=== PATIENT | female | born 1965 | race Caucasian/White ===

== ENCOUNTER 2017-05-17 15:45 | Inpatient (IN) | payer OTHER ==
[~2017-05-17 15:45] MED LIST: ONDANSETRON 4 MG/2 ML VIAL IVPUSH PRN
--- NOTE | 2017-05-17 15:56 | PDOC ---
Rapid Medical Evaluation Chief Complaint: Eye Problem Time Seen by Provider: 05/17/17 15:55 Medical Evaluation: Allergies Allergy/AdvReac Type Severity Reaction Status Date / Time No Known Allergies Allergy Verified 10/30/13 21:00 05/17/17 15:55 I have performed a brief in-person evaluation of this patient. The patient presents with a chief complaint of: anorexia x 1 week, vomiting > 1 week, pain to R side, elevated bilirubin to "6.8 i think, they said i have acute CBD and enlarged liver from a sonogram yesterday", has dark urine, was supposed to get an MRCP - sent in by PCP Layla Meléndez Pertinent physical exam findings: mild jaundice I have ordered the following: labs The patient will proceed to the ED for further evaluation. Discharge Disposition - Diagnosis Elevated bilirubin - Referrals - Patient Instructions - Post Discharge Activity
[2017-05-17 16:58] LABS: EOS % 1.1 % (0-4.5); HEMATOCRIT 38.9 % (32.4-45.2); HEMOGLOBIN 13.7 GM/dL (10.7-15.3); LYMPH % 32.8 % (8-40); MCH 30.6 pg (25.7-33.7); MCHC 35.1 g/dl (32.0-36.0); MEAN CELL VOLUME 87.3 fl (80-96); MEAN PLT VOLUME 8.1 fl (7.5-11.1); MONO % 6.6 % (3.8-10.2); NEUT % 58.5 % (42.8-82.8); PLATELET COUNT 283 K/MM3 (134-434); RBC 4.46 M/mm3 (3.60-5.2); RDW 14.6 % (11.6-15.6); WHITE BLOOD COUNT 6.3 K/mm3 (4.0-10.0)
[2017-05-17 17:09] LABS: URINE APPEARANCE CLEAR; URINE BLOOD 2+ (NEGATIVE); URINE COLOR AMBER; URINE GLUCOSE (UA) NEGATIVE (NEGATIVE); URINE KETONE NEGATIVE (NEGATIVE); URINE LEUK ESTERASE NEGATIVE (NEGATIVE); URINE NITRITE NEGATIVE (NEGATIVE); URINE PROTEIN NEGATIVE (NEGATIVE); URINE UROBILINOGEN 4.0 E.U/dl mg/dL (0.2-1.0)
[2017-05-17 17:20] LABS: ALBUMIN 3.7 g/dl (3.4-5.0); AMYLASE 30 U/L (25-115); ANION GAP 6 (8-16); BLOOD UREA NITROGEN 9 mg/dL (7-18); CALCIUM 8.9 mg/dL (8.5-10.1); CHLORIDE 106 mmol/L (98-107); CO2 28 mmol/L (21-32); GLUCOSE,RANDOM 115 mg/dL (74-106); POTASSIUM 3.6 mmol/L (3.5-5.1); SODIUM 140 mmol/L (136-145)
[2017-05-17 17:24] LABS: ALK PHOS 224 U/L (45-117); BILIRUBIN,TOTAL 7.2 mg/dL (0.2-1.0); CREATININE 0.8 mg/dL (0.55-1.02); SGOT/AST 106 U/L (15-37); SGPT/ALT 235 U/L (12-78); TOT PROT 7.2 g/dl (6.4-8.2)
[2017-05-17 17:25] LABS: EPI CELLS RARE /HPF (FEW); URINE MUCUS RARE
--- NOTE | 2017-05-17 17:55 | PDOC ---
History of Present Illness - General Chief Complaint: Pain Stated Complaint: abd pain (PCP SENT) Time Seen by Provider: 05/17/17 15:55 History Source: Patient Exam Limitations: No Limitations - History of Present Illness Initial Comments: 05/17/17 18:37 I was unable to find this patient Ultrasound was ordered Will continue to look for her Past History - Past Medical History Allergies/Adverse Reactions: Allergies Allergy/AdvReac Type Severity Reaction Status Date / Time No Known Allergies Allergy Verified 05/17/17 16:01 Home Medications: Ambulatory Orders Bupropion HCl [Bupropion Xl] 300 mg PO BID 10/30/13 Ergocalciferol (Vitamin D2) [Vitamin D] 50,000 unit PO WEEKLY 10/30/13 Hydrochlorothiazide [Hctz -] 25 mg PO DAILY 10/30/13 Hyoscyamine 0.125 mg PO TID 10/30/13 Loratadine 10 mg PO DAILY 10/30/13 Magnesium Oxide [Mag-Ox -] 400 mg PO DAILY 10/30/13 Metformin HCl [Metformin HCl ER] 500 mg PO BID 10/30/13 Metoprolol Tartrate [Lopressor -] 25 mg PO BID 10/30/13 [place]-3 Acid Ethyl Esters [Lovaza -] 1,000 mg PO BID 10/30/13 Omeprazole [Prilosec] 20 mg PO BID 10/30/13 COPD: No Diabetes: Yes GI Disorders: Yes (enlarged liver) HTN: Yes - Immunization History Immunization Up to Date: Yes - Suicide/Smoking/Psychosocial Hx Smoking History: Never smoked Have you smoked in the past 12 months: No Information on smoking cessation initiated: No Hx Alcohol Use: No Drug/Substance Use Hx: No Substance Use Type: None *Physical Exam - Vital Signs Last Vital Signs Temp Pulse Resp BP Pulse Ox 98.5 F 73 18 158/96 100 05/17/17 15:57 05/17/17 15:57 05/17/17 15:57 05/17/17 15:57 05/17/17 15:57 ED Treatment Course - LABORATORY CBC & Chemistry Diagram: 05/17/17 16:38 05/17/17 16:37 - ADDITIONAL ORDERS Additional order review: Laboratory Results 05/17/17 05/17/17 05/17/17 16:43 16:38 16:37 Sodium 140 Potassium 3.6 Chloride 106 Carbon Dioxide 28 Anion Gap 6 L BUN 9 Creatinine 0.8 Creat Clearance w eGFR > 60 Random Glucose 115 H Calcium 8.9 Total Bilirubin 7.2 H AST 106 H ALT 235 H Alkaline Phosphatase 224 H Total Protein 7.2 Albumin 3.7 Total Amylase 30 Lipase 196 Urine Color [place] Urine Appearance Clear Urine pH 6.0 Ur Specific [place] 1.021 Urine Protein Negative Urine Glucose (UA) Negative Urine Ketones Negative Urine Blood 2+ H Urine Nitrite Negative Urine Bilirubin 4.0 Urine Urobilinogen 4.0 e.u/dl H Ur Leukocyte Esterase Negative Urine WBC (Auto) 5 Urine RBC (Auto) 3 Ur Epithelial Cells Rare Urine Mucus Rare 05/17/17 16:38 RBC 4.46 MCV 87.3 MCHC 35.1 RDW 14.6 MPV 8.1 Neutrophils % 58.5 Lymphocytes % 32.8 Monocytes % 6.6 Eosinophils % 1.1 Basophils % 1.0 *DC/Admit/Observation/Transfer Diagnosis at time of Disposition: Elevated bilirubin - Referrals Referrals: Su Meléndez [Primary Care Provider] - - Patient Instructions - Post Discharge Activity
--- NOTE | 2017-05-17 20:20 | PDOC ---
History of Present Illness - General History Source: Patient Exam Limitations: No Limitations - History of Present Illness Initial Comments: 05/17/17 20:31 The patient is a 51 year old female, with a significant past medical history of hypertension, diabetes, and enlarged liver, who presents to the emergency department with RUQ pain for 1 week. Patient reports her pain radiates into her right mid back. She reports associated changes in urine color (brown tinged), but denies any dysuria, frequency, or urgency. Patient reports following up with her PCP Dr. Meléndez, who ordered an US, which was notable for a stone in the bile duct. Patient reports she has only been able to tolerate fluids p.o. Secondary to pain. She denies any nausea, vomiting, diarrhea, or constipation. She denies any dysuria, hematuria, frequency, or urgency. Allergies: NKDA Past Surgical History: None reported Social History: Non smoker. No ETOH or recreational drug use. PCP: Dr. Meléndez GI: Dr. Bullock <Maren Louie - Last Filed: 05/17/17 22:22> <Kiah Arrieta - Last Filed: 05/17/17 23:04> - General Chief Complaint: Pain Stated Complaint: abd pain (PCP SENT) Time Seen by Provider: 05/17/17 15:55 Past History <Maren Louie - Last Filed: 05/17/17 22:22> - Past Medical History COPD: No Diabetes: Yes GI Disorders: Yes (enlarged liver) HTN: Yes - Immunization History Immunization Up to Date: Yes - Suicide/Smoking/Psychosocial Hx Smoking History: Never smoked Have you smoked in the past 12 months: No Information on smoking cessation initiated: No Hx Alcohol Use: No Drug/Substance Use Hx: No Substance Use Type: None <Kiah Arrieta - Last Filed: 05/17/17 23:04> - Past Medical History Allergies/Adverse Reactions: Allergies Allergy/AdvReac Type Severity Reaction Status Date / Time No Known Allergies Allergy Verified 05/17/17 16:01 Home Medications: Ambulatory Orders Bupropion HCl [Bupropion Xl] 300 mg PO BID 10/30/13 Ergocalciferol (Vitamin D2) [Vitamin D] 50,000 unit PO WEEKLY 10/30/13 Hydrochlorothiazide [Hctz -] 25 mg PO DAILY 10/30/13 Hyoscyamine 0.125 mg PO TID 10/30/13 Loratadine 10 mg PO DAILY 10/30/13 Magnesium Oxide [Mag-Ox -] 400 mg PO DAILY 10/30/13 Metformin HCl [Metformin HCl ER] 500 mg PO BID 10/30/13 Metoprolol Tartrate [Lopressor -] 25 mg PO BID 10/30/13 [place]-3 Acid Ethyl Esters [Lovaza -] 1,000 mg PO BID 10/30/13 Omeprazole [Prilosec] 20 mg PO BID 10/30/13 Review of Systems - Review of Systems Able to Perform ROS?: Yes Comments:: 05/17/17 20:32 GENERAL/CONSTITUTIONAL: No fever or chills. No weakness. HEAD, EYES, EARS, NOSE AND THROAT: No change in vision. No ear pain or discharge. No sore throat. GASTROINTESTINAL: Yes RUQ pain radiating to left mid back No nausea, vomiting, diarrhea or constipation. GENITOURINARY: Yes change in urine color. No dysuria, frequency. CARDIOVASCULAR: No chest pain or shortness of breath. RESPIRATORY: No cough, wheezing, or hemoptysis. MUSCULOSKELETAL: No joint or muscle swelling or pain. No neck pain. SKIN: No rash NEUROLOGIC: No headache, vertigo, loss of consciousness, or change in strength/ sensation. ENDOCRINE: Decreased appetite. No increased thirst. No abnormal weight change. HEMATOLOGIC/LYMPHATIC: No anemia, easy bleeding, or history of blood clots. ALLERGIC/IMMUNOLOGIC: No hives or skin allergy. <Maren Louie - Last Filed: 05/17/17 22:22> *Physical Exam - Vital Signs Last Vital Signs Temp Pulse Resp BP Pulse Ox 98.5 F 73 18 158/96 100 05/17/17 15:57 05/17/17 15:57 05/17/17 15:57 05/17/17 15:57 05/17/17 15:57 - Physical Exam Comments: 05/17/17 20:32 Constitutional: Awake, alert, oriented. No acute distress. Head: Normocephalic. Atraumatic Eyes: +Scleral icterus PERRL. EOMI. Conjunctivae are not pale. ENT: Mucous membranes are moist and intact. Posterior pharynx without exudates or erythema. Uvula midline. Neck: Supple. Full ROM. No lymphadenopathy. Cardiovascular: Regular rate. Regular rhythm. S1, S2 regular. Distal pulses are 2+ and symmetric. Pulmonary/Chest: No evidence of respiratory distress. Clear to auscultation bilaterally No wheezing, rales or rhonchi. Abdominal: +RUQ tenderness to palpation, but no guarding or rebound. Soft and non-distended. No organomegaly. No palpable masses. Good bowel sounds. Back: No CVA tenderness. Musculoskeletal: No edema. No cyanosis. No clubbing. Full range of motion in all extremities. No calf tenderness. Radial/pedal pulses are intact and 2+ bilaterally Skin: +Jaundice. Skin is warm and dry. No petechiae. No purpura. Neurological: Alert and oriented to person, place, and time. Cranial nerves II -XII are grossly intact. Normal speech. Strength is grossly symmetric. No sensory deficits. Psychiatric: Good eye contact. Normal interaction, affect and behavior. <Maren Louie - Last Filed: 05/17/17 22:22> - Vital Signs Last Vital Signs Temp Pulse Resp BP Pulse Ox 98.5 F 73 18 158/96 100 05/17/17 15:57 05/17/17 15:57 05/17/17 15:57 05/17/17 15:57 05/17/17 15:57 <Kiah Arrieta - Last Filed: 05/17/17 23:04> Heart Score/ECG Review - ECG Intrepretation Comment:: 05/17/17 23:03 sinus isaiah at 59, nl axis, nl interval, t wave inversions lateral leads <Kiah Arrieta - Last Filed: 05/17/17 23:04> ED Treatment Course - LABORATORY CBC & Chemistry Diagram: 05/17/17 16:38 05/17/17 16:37 - ADDITIONAL ORDERS Additional order review: Laboratory Results 05/17/17 05/17/17 05/17/17 16:43 16:38 16:37 Sodium 140 Potassium 3.6 Chloride 106 Carbon Dioxide 28 Anion Gap 6 L BUN 9 Creatinine 0.8 Creat Clearance w eGFR > 60 Random Glucose 115 H Calcium 8.9 Total Bilirubin 7.2 H AST 106 H ALT 235 H Alkaline Phosphatase 224 H Total Protein 7.2 Albumin 3.7 Total Amylase 30 Lipase 196 Urine Color Magdalena Urine Appearance Clear Urine pH 6.0 Ur Specific [place] 1.021 Urine Protein Negative Urine Glucose (UA) Negative Urine Ketones Negative Urine Blood 2+ H Urine Nitrite Negative Urine Bilirubin 4.0 Urine Urobilinogen 4.0 e.u/dl H Ur Leukocyte Esterase Negative Urine WBC (Auto) 5 Urine RBC (Auto) 3 Ur Epithelial Cells Rare Urine Mucus Rare 05/17/17 16:38 RBC 4.46 MCV 87.3 MCHC 35.1 RDW 14.6 MPV 8.1 Neutrophils % 58.5 Lymphocytes % 32.8 Monocytes % 6.6 Eosinophils % 1.1 Basophils % 1.0 <Maren Louie - Last Filed: 05/17/17 22:22> - LABORATORY CBC & Chemistry Diagram: 05/17/17 16:38 05/17/17 16:37 - ADDITIONAL ORDERS Additional order review: Laboratory Results 05/17/17 05/17/17 05/17/17 16:43 16:38 16:37 Sodium 140 Potassium 3.6 Chloride 106 Carbon Dioxide 28 Anion Gap 6 L BUN 9 Creatinine 0.8 Creat Clearance w eGFR > 60 Random Glucose 115 H Calcium 8.9 Total Bilirubin 7.2 H AST 106 H ALT 235 H Alkaline Phosphatase 224 H Total Protein 7.2 Albumin 3.7 Total Amylase 30 Lipase 196 Urine Color [place] Urine Appearance Clear Urine pH 6.0 Ur Specific [place] 1.021 Urine Protein Negative Urine Glucose (UA) Negative Urine Ketones Negative Urine Blood 2+ H Urine Nitrite Negative Urine Bilirubin 4.0 Urine Urobilinogen 4.0 e.u/dl H Ur Leukocyte Esterase Negative Urine WBC (Auto) 5 Urine RBC (Auto) 3 Ur Epithelial Cells Rare Urine Mucus Rare 05/17/17 16:38 RBC 4.46 MCV 87.3 MCHC 35.1 RDW 14.6 MPV 8.1 Neutrophils % 58.5 Lymphocytes % 32.8 Monocytes % 6.6 Eosinophils % 1.1 Basophils % 1.0 <Kiah Arrieta - Last Filed: 05/17/17 23:04> Medical Decision Making - Medical Decision Making 05/17/17 21:23 First call placed to Dr. Bullock at 21:23. Awaiting call back. Case discussed with Dr. Bullock at 22:15. First call to Surgery service liaison representative at 22:25. Awaiting call back. <Maren Louie - Last Filed: 05/17/17 22:22> - Medical Decision Making 05/17/17 21:01 a/p: 51yo female with RUQ pain -seen by PMD on monday - had ultrasound that showed dilated CBD concerning for acute choledocholithiasis also with elevated bilirubin jaundiced has had n/v and RUQ pain after ever meal will repeat labs and ultrasound ivf hydration npo preop labs chast[facility] LE will call with results pain control 05/17/17 22:17 pt updated on lab and imaging results 05/17/17 22:[address] Bullock - admit and will do ERCP 05/17/17 22:18 Dr. Bullock states that Dr. Meléndez is covered by Dr. Felton who is covered tonight by [facility] 05/17/17 23:[address] Snyder - covering [facility] accepts pt to service case discussed with Dr. Sommers - will see the patient in consult <Kiah Arrieta - Last Filed: 05/17/17 23:04> *DC/Admit/Observation/Transfer - Attestations Scribe Attestion: 05/17/17 20:31 Documentation prepared by Maren Louie, acting as medical scheduler for Kiah Arrieta DO. <Maern Louie - Last Filed: 05/17/17 22:22> - Discharge Dispostion Admit: Yes - Attestations Physician Attestion: 05/17/17 22:17 I, Dr. Kiah Arrieta DO, attest that this document has been prepared under my direction and personally reviewed by me in its entirety. I further attest, that it accurately reflects all work, treatment, procedures and medical decision -making performed by me. <Kiah Arrieta - Last Filed: 05/17/17 23:04> Diagnosis at time of Disposition: Elevated bilirubin, Choledocholithiasis, Cholelithiasis - Discharge Dispostion Condition at time of disposition: Guarded - Referrals Referrals: Su Meléndez [Primary Care Provider] - - Patient Instructions - Post Discharge Activity
[2017-05-17] MEDS ORDERED: SODIUM CHLORIDE 0.9% 1000 ML INFUS.BAG IV ONE (20:29)
[2017-05-17] MEDS ORDERED: morphine CARPU-JECT 2 MG/1 ML DISP.SYRIN IVPUSH ONE (20:29)
[2017-05-17] MEDS ORDERED: ONDANSETRON 4 MG/2 ML VIAL IVPUSH ONE (20:29)
[2017-05-17] MEDS ORDERED: FAMOTIDINE 20 MG/50 ML IVPB 20 MG/50 ML MG IVPB ONE (20:45)
[2017-05-17] MEDS ORDERED: ONDANSETRON 4 MG/2 ML VIAL ONE (21:38)
[2017-05-17] MEDS ORDERED: morphine SULFATE 4 MG/ML VIAL ONE (21:38)
[2017-05-17 22:04] LABS: INR 0.96 (0.82-1.09); PROTHROMBIN TIME (PATIENT) 10.8 SEC (9.98-11.88)
--- NOTE | 2017-05-17 23:13 | PN ---
Teaching Attending Note Name of Resident: Kali Arthur ATTENDING PHYSICIAN STATEMENT I saw and evaluated the patient. I reviewed the resident's note and discussed the case with the resident. I agree with the resident's findings and plan as documented. SUBJECTIVE: 51 F with Pmhx. of HTN, DM, Hepatomegaly who presents with right upper quadrant pain X1 week, States pain was sharp and worse with eating. Notes she had one NBNB episode of vomiting yesterday. States her urine has been brown and her stool dye jig operator than usual. Denies any chest pain, pressure, or shortness of breath. No nausea or diarrhea. No fevers or chills. States pain is 0 now after pain medication in ED. OBJECTIVE: Physical: VS: Vital Signs Period Temp Pulse Resp BP Sys/Barrett Pulse Ox Last 24 Hr 98.5 F 73 18 158/96 100 GEN: NAD, Resting in bed, AA0X3 HEENT: NCAT, PERRL, Throat without erythema or exudates CARD: RRR S1, S2 RESP:CTAB ABD: BSx4, NTD to palpation EXT: - C/C/E CBCD WBC 6.3 K/mm3 (4.0-10.0) 05/17/17 16:38 RBC 4.46 M/mm3 (3.60-5.2) 05/17/17 16:38 Hgb 13.7 GM/dL (10.7-15.3) 05/17/17 16:38 Hct 38.9 % (32.4-45.2) 05/17/17 16:38 MCV 87.3 fl (80-96) 05/17/17 16:38 MCHC 35.1 g/dl (32.0-36.0) 05/17/17 16:38 RDW 14.6 % (11.6-15.6) 05/17/17 16:38 Plt Count 283 K/MM3 (134-434) 05/17/17 16:38 MPV 8.1 fl (7.5-11.1) 05/17/17 16:38 CMP Sodium 140 mmol/L (136-145) 05/17/17 16:37 Potassium 3.6 mmol/L (3.5-5.1) 05/17/17 16:37 Chloride 106 mmol/L (98-107) 05/17/17 16:37 Carbon Dioxide 28 mmol/L (21-32) 05/17/17 16:37 Anion Gap 6 (8-16) L 05/17/17 16:37 BUN 9 mg/dL (7-18) 05/17/17 16:37 Creatinine 0.8 mg/dL (0.55-1.02) 05/17/17 16:37 Creat Clearance w eGFR > 60 (>60) 05/17/17 16:37 Random Glucose 115 mg/dL (74-106) H 05/17/17 16:37 Calcium 8.9 mg/dL (8.5-10.1) 05/17/17 16:37 Total Bilirubin 7.2 mg/dL (0.2-1.0) H 05/17/17 16:37 AST 106 U/L (15-37) H 05/17/17 16:37 ALT 235 U/L (12-78) H 05/17/17 16:37 Alkaline Phosphatase 224 U/L (45-117) H 05/17/17 16:37 Total Protein 7.2 g/dl (6.4-8.2) 05/17/17 16:37 Albumin 3.7 g/dl (3.4-5.0) 05/17/17 16:37 ABD US: Cholelithiasis without evidence of acute choley. Mild - Moderate gallbladder overdistension. Bile/Sludge within lumen CBD dilated 1.2 cm. Mild Intrahepatic biliary tract dilitation. Ambulatory Orders Bupropion HCl [Bupropion Xl] 300 mg PO BID 10/30/13 Ergocalciferol (Vitamin D2) [Vitamin D] 50,000 unit PO WEEKLY 10/30/13 Hydrochlorothiazide [Hctz -] 25 mg PO DAILY 10/30/13 Hyoscyamine 0.125 mg PO TID 10/30/13 Loratadine 10 mg PO DAILY 10/30/13 Magnesium Oxide [Mag-Ox -] 400 mg PO DAILY 10/30/13 Metformin HCl [Metformin HCl ER] 500 mg PO BID 10/30/13 Metoprolol Tartrate [Lopressor -] 25 mg PO BID 10/30/13 [place]-3 Acid Ethyl Esters [Lovaza -] 1,000 mg PO BID 10/30/13 Omeprazole [Prilosec] 20 mg PO BID 10/30/13 ASSESSMENT AND PLAN: 51 F with pmhx. of HTN, DM who presents with right upper quadrant pain, being admitted for possible choledocholelithiasis 1.) RUQ Pain - Choledocholithiasis possible acute choley - NPO - IVF - Pain Control - GI Consulted BY ED, for ERCP in am - Coags - Type & Screen 2.) DM - FS - RAISS 3.) HTN - C/W Metoprolol 5.) Dvt Ppx - SCDS Rest as per resident note Place in Med-Sx
[2017-05-17] MEDS ORDERED: morphine SULFATE 4 MG/ML VIAL IVPUSH PRN (23:16)
--- NOTE | 2017-05-17 23:34 | MSN ---
Admitting History and Physical - Admission Chief Complaint: RUQ pain History of Present Illness: 51 yr old female with hx of HTN, diabetes, obesity, and anxiety presents with 1 week of severe right upper quadrant fullness. Patient reports she has been intermittently experiencing RUQ after eating for several months however, last Monday patient described feeling a very sharp pain in her RUQ after eating. She describes this pain as much more severe than previous episodes. This pain was associated with repeated vomiting and radiation of the pain up the right chest and into the right shoulder. Patient thought that the pain was from indigestion and did not seek medical attention at the time. Since this episode 1 week ago, she continues to experience RUQ fullness and been unable to tolerate solid foods without vomiting. Patient went to her PCP (Dr. De Los Santos) on Monday who ordered u/s that demonstrated cholelithiasis and choledocolithias. Patient was advised to go to ED. Patient has noticed that her sclera/ skin have appeared yellow in the past week. She admits to dark colored urine and pale stools. She denies fever, chills, chest pain or SOB. History Source: Patient Limitations to Obtaining History: No Limitations - Past Surgical History Past Surgical History: Yes: - Smoking History Smoking history: Never smoked Have you smoked in the past 12 months: No - Alcohol/Substance Use Hx Alcohol Use: No Home Medications - Allergies Allergies/Adverse Reactions: Allergies Allergy/AdvReac Type Severity Reaction Status Date / Time No Known Allergies Allergy Verified 05/17/17 16:01 - Home Medications Home Medications: Ambulatory Orders Bupropion HCl [Bupropion Xl] 300 mg PO BID 10/30/13 Ergocalciferol (Vitamin D2) [Vitamin D] 50,000 unit PO WEEKLY 10/30/13 Hydrochlorothiazide [Hctz -] 25 mg PO DAILY 10/30/13 Hyoscyamine 0.125 mg PO TID 10/30/13 Loratadine 10 mg PO DAILY 10/30/13 Magnesium Oxide [Mag-Ox -] 400 mg PO DAILY 10/30/13 Metformin HCl [Metformin HCl ER] 500 mg PO BID 10/30/13 Metoprolol Tartrate [Lopressor -] 25 mg PO BID 10/30/13 [place]-3 Acid Ethyl Esters [Lovaza -] 1,000 mg PO BID 09/24/14 Omeprazole [Prilosec] 20 mg PO BID 10/30/13 Review of Systems - Review of Systems Constitutional: reports: Loss of Appetite. denies: Chills, Fever Gastrointestinal: reports: Abdominal Pain, Constipation, Indigestion Physical Examination Vital Signs: Vital Signs Temperature 98.5 F 05/17/17 15:57 Pulse Rate 73 05/17/17 15:57 Respiratory Rate 18 05/17/17 15:57 Blood Pressure 158/96 05/17/17 15:57 O2 Sat by Pulse Oximetry (%) 100 05/17/17 15:57 Findings/Remarks: GENERAL: Well-appearing woman reclining on stretcher in no acute distress HEAD: Normocephalic, atraumatic EYES: Yellowed sclera NECK: Supple without lymphadenapathy CARDIOVASCULAR: No JVD, normal S1/S2 without murmur, rubs, or gallops LUNGS: Clear to auscultation b/l, no wheezes or crackles ABDOMEN: Normoactive bowel sounds, soft, RUQ tenderness, no rebound or guarding EXTREMITIES: No edema, warm, well-perfused NEURO: Normal speech, no difficultly ambulating Labs: CBC, BMP 05/17/17 16:38 05/17/17 16:37 Imaging - Results Ultrasound: Report Reviewed (Cholelithiasis w/o evidence of acute cholecystitis , mild/moderate gallbladder overdistention, common bile duct dilated to 1.2 cm) EKG: Report Reviewed (Sinus bradycardia with T-wave inversions in the lateral leads) Assessment/Plan 51 yr old woman with hx of HTN, diabetes, obesity and anxiety was sent to ED by PCP after presenting to PCP with 1 week of RUQ fullness and was found to have a dilated common bile duct on abd u/s. #Right Upper Quadrant Pain -ABD u/s demonstrated dilated common bile duct, distended gallbladder, and cholelithiasis -Total bilirubin 7.2; elevated AST/ALT/alk phos -Patient unable to tolerate MRCP; scheduled for ERCP with Dr. Bullock for -Consult Dr. Sommers for cholecystectomy -Order CXR, EKG, CBC, CMP, type and cross to prepare for OR -Control abd pain with morphine #HTN -Continue home medications; Metropolol, HCTZ #Diabetes -Hold Metformin -POC BGM AC/HS -Cover with insulin sliding scale as needed to maintain postprandial < 180 and fasting <120 #Anxiety -Continue buproprion #FEN -NS at 100ml/hr -NPO after midnight #Dispo -Admit to med-surg
--- NOTE | 2017-05-17 23:37 | HP ---
CHIEF COMPLAINT: RUQ Pain PCP: Dr Meléndez HISTORY OF PRESENT ILLNESS: 51yo obese F with PMHx of HTN, DM2 who presented with 4 days of constant RUQ pain. Attests to weeks of postprandial colicky RUQ pain, but attributed it to her GERD. 4 days ago, she experienced constant, sharp RUQ pain assoc w/ NBNB vomiting, jaundice, dark urine, and light colored stools. She went to her PCP who performed a RUQ ultrasound which showed a stone in her CBD. She was sent here for further management. She denies fevers, chills, CP, SOB, diarrhea, constipation. In the ER, the patient was hemodynamically stable, afebrile. She was given morphine which relieved her pain completely. A new ultrasound showed gallstones w/ a dilated CBD of 12mm. Her gallbladder is distended but not inflammed. Labs notable for obstructive LFT pattern without leukocytosis. Recent Travel: Denies PAST MEDICAL HISTORY: HTN, DM2, anxiety, GERD PAST SURGICAL HISTORY: Social History: Smoking: Denies Alcohol: Denies Drugs: Denies Allergies: No Known Allergies Allergy (Verified 05/17/17 16:01) HOME MEDICATIONS: Home Medications Medication Instructions Recorded Bupropion HCl [Bupropion Xl] 300 mg PO BID 10/30/13 Ergocalciferol (Vitamin D2) 50,000 unit PO WEEKLY 10/30/13 [Vitamin D] Hydrochlorothiazide [Hctz -] 25 mg PO DAILY 10/30/13 Hyoscyamine 0.125 mg PO TID 10/30/13 Loratadine 10 mg PO DAILY 10/30/13 Magnesium Oxide [Mag-Ox -] 400 mg PO DAILY 10/30/13 Metformin HCl [Metformin HCl ER] 500 mg PO BID 10/30/13 Metoprolol Tartrate [Lopressor -] 25 mg PO BID 10/30/13 [place]-3 Acid Ethyl Esters [Lovaza 1,000 mg PO BID 10/30/13 -] Omeprazole [Prilosec] 20 mg PO BID 10/30/13 REVIEW OF SYSTEMS CONSTITUTIONAL: Absent: fever, chills, diaphoresis, generalized weakness, malaise, loss of appetite, weight change HEENT: Absent: rhinorrhea, nasal congestion, throat pain, throat swelling, difficulty swallowing, mouth swelling, ear pain, eye pain, visual changes CARDIOVASCULAR: Absent: chest pain, syncope, palpitations, irregular heart rate , lightheadedness, peripheral edema RESPIRATORY: Absent: cough, shortness of breath, dyspnea with exertion, orthopnea, wheezing, stridor, hemoptysis GASTROINTESTINAL:Absent: abdominal pain, abdominal distension, nausea, vomiting , diarrhea, constipation, melena, hematochezia GENITOURINARY: Absent: dysuria, frequency, urgency, hesitancy, hematuria, flank pain, genital pain MUSCULOSKELETAL: Absent: myalgia, arthralgia, joint swelling, back pain, neck pain SKIN: Absent: rash, itching, pallor HEMATOLOGIC/IMMUNOLOGIC: Absent: easy bleeding, easy bruising, lymphadenopathy, frequent infections ENDOCRINE:Absent: unexplained weight gain, unexplained weight loss, heat intolerance, cold intolerance NEUROLOGIC: Absent: headache, focal weakness or paresthesias, dizziness, unsteady gait, seizure, mental status changes, bladder or bowel incontinence PSYCHIATRIC: Absent: anxiety, depression, suicidal or homicidal ideation, hallucinations. PHYSICAL EXAMINATION Vital Signs Period Temp Pulse Resp BP Sys/Barrett Pulse Ox Last 24 Hr 98.5 F 73 18 158/96 100 GEN: AAOx3, NAD, walking around comfortably without pain, jaundiced HEENT: PERRLA, EOMi, +scleral icterus CV: S1, S2, RRR LUNG: CTABL ABD: Soft, NT, ND MSK: No edema, no erythema NEURO: CN 2-12 grossly intact, no msk or sensation deifcits ASSESSMENT/PLAN: 51yo obese F with PMHx of HTN, DM2 who presented with 4 days of constant RUQ pain, found to have choledocholithiasis # Choledocholithiasis -- Seen on outpatient ultrasound. GI and Surgery were contacted in the ER. Pt will have ERCP tmrw by Dr Bullock. Will obtain pre-op labs, type&screen, coag. NPO after midnight. IVF. Will get pre-op EKG, CXR. Pt is afebrile without WBC and non-ill appearing, so will hold off on antibiotic for not. Pt will need an interval cholecystectomy, surgery (Dr Sommers) was already contacted. # Cholestatic pruritis -- Will add low dose cholestyramine 4g bid # HTN -- Well controlled. Continue home Metoprolol and HCTz # NIDDM -- Hold metformin. BGMs and ISS ACHS # GERD -- Continue PPi # Anxiety -- Continue Buproprion after dose is confirmed. Currently held by pharmacy # FEN/PPx -- IVNS @ [facility], NPO, SCDs # Dispo -- Admit to med/surg Case d/w Dr Snyder & Dr Leanna Arthur MD - pGY1 Internal Medicine Dr Felton to resume care in the AM. Visit type - Emergency Visit Emergency Visit: Yes ED Registration Date: 05/17/17 Care time: The patient presented to the Emergency Department on the above date and was hospitalized for further evaluation of their emergent condition. - New Patient This patient is new to me today: Yes Date on this admission: 05/18/17 - Critical Care Critical Care patient: No Hospitalist Screening - Colonoscopy Questionnaire Colonoscopy Questionnaire: Colonoscopy Questionnaire - Patient: 50 - 75 years old and never had a screening colonoscopy: Unknown History of colon or rectal polyps, or CA: Unknown History of IBD, Crohn's disease or UC: Unknown History of abdominal radiation therapy as a child: Unknown - Relative: 1 with colon or rectal CA, or polyps at age 60 or younger: Unknown Colon or rectal CA diagnosed at age 45 or younger: Unknown Multiple relatives with colon or rectal CA: Unknown - Outcome: Screening Result: Negative Screen
[2017-05-17] MEDS: SODIUM CHLORIDE 1,000 ML IV SCH (23:40)
--- NOTE | 2017-05-18 04:26 | CONSULT ---
Consult Consult Specialty:: general surgery Referred by:: constance Reason for Consultation:: choledocholithiasis - History of Present Illness Chief Complaint: abdominal pain History of Present Illness: 51 yo PMH HTN, DM type 2 who presented with 4 days of constant RUQ pain. Attests to weeks of postprandial colicky RUQ pain, but attributed it to her GERD. 4 days ago, she experienced constant, sharp RUQ pain assoc w/ NBNB vomiting, jaundice, dark urine, and light colored stools. She went to her PCP who performed a RUQ ultrasound which showed a stone in her CBD. She was sent here for further management. She denies fevers, chills, CP, SOB, diarrhea, constipation. We were asked to assess. - History Source History Provided By: Patient, Medical Record Limitations to Obtaining History: No Limitations - Past Surgical History Past Surgical History: Yes: - Alcohol/Substance Use Hx Alcohol Use: No - Smoking History Smoking history: Never smoked Have you smoked in the past 12 months: No Home Medications - Allergies Allergies/Adverse Reactions: Allergies Allergy/AdvReac Type Severity Reaction Status Date / Time No Known Allergies Allergy Verified 05/17/17 16:01 - Home Medications Home Medications: Ambulatory Orders Bupropion HCl [Bupropion Xl] 300 mg PO BID 10/30/13 Ergocalciferol (Vitamin D2) [Vitamin D] 50,000 unit PO WEEKLY 10/30/13 Hydrochlorothiazide [Hctz -] 25 mg PO DAILY 10/30/13 Hyoscyamine 0.125 mg PO TID 10/30/13 Loratadine 10 mg PO DAILY 10/30/13 Magnesium Oxide [Mag-Ox -] 400 mg PO DAILY 10/30/13 Metformin HCl [Metformin HCl ER] 500 mg PO BID 10/30/13 Metoprolol Tartrate [Lopressor -] 25 mg PO BID 10/30/13 [place]-3 Acid Ethyl Esters [Lovaza -] 1,000 mg PO BID 10/30/13 Omeprazole [Prilosec] 20 mg PO BID 10/30/13 Review of Systems - Review of Systems Constitutional: reports: Fever. denies: Chills Eyes: denies: Blind Spots, Recent Change in Vision HENT: denies: Difficult Swallowing, Throat Pain Neck: denies: Pain on Movement, Tenderness Cardiovascular: denies: Chest Pain, Palpitations Respiratory: denies: Cough, SOB Gastrointestinal: reports: Abdominal Pain, Indigestion. denies: Constipation, Diarrhea Genitourinary: denies: Burning, Discharge Breasts: reports: No Symptoms Reported. denies: Pain Musculoskeletal: denies: Muscle Cramps, Muscle Weakness Integumentary: denies: Lesions, Rash Neurological: denies: Confusion, Seizure, Syncope Endocrine: denies: Unexplained Weight Gain, Unexplained Weight Loss Hematology/Lymphatic: denies: Easily Bruised, Excessive Bleeding Psychiatric: denies: Anxiety, Depression Physical Exam Vital Signs: Vital Signs Temperature 98.5 F 05/17/17 15:57 Pulse Rate 73 05/17/17 15:57 Respiratory Rate 18 05/17/17 15:57 Blood Pressure 158/96 05/17/17 15:57 O2 Sat by Pulse Oximetry (%) 100 05/17/17 15:57 Constitutional: Yes: No Distress, Calm Eyes: Yes: Conjunctiva Clear, EOM Intact HENT: Yes: Atraumatic, Normocephalic Neck: Yes: Supple, Trachea Midline Cardiovascular: Yes: Regular Rate and Rhythm, S1, S2. No: Murmur Respiratory: Yes: Regular, CTA Bilaterally Gastrointestinal: Yes: Normal Bowel Sounds, Soft, Abdomen, Obese Renal/: No: CVA Tenderness - Left, CVA Tenderness - Right Musculoskeletal: No: Muscle Pain, Muscle Weakness Extremities: No: Calf Tenderness, Cool, Cyanosis Integumentary: No: Jaundice, Rash Wound/Incision: Yes: Other (well healed lower midline) Neurological: Yes: Alert, Oriented Psychiatric: Yes: Alert, Oriented Labs: CBC, BMP 05/17/17 16:38 05/17/17 16:37 Imaging - Results Cat Scan: Report Reviewed (distend GB with sludge an small stones), Image Reviewed Ultrasound: Report Reviewed (1.2 cm CBD, distended GB), Image Reviewed
[2017-05-18] MEDS ORDERED: HYOSCYAMINE SULFATE 0.125 MG TABLET PO SCH (06:00)
[2017-05-18] MEDS: HYOSCYAMINE SULFATE 0.125 MG *ODT PO SCH ×3 (06:58→22:21)
[2017-05-18 07:31] LABS: HEMATOCRIT 37.4 % (32.4-45.2); MCH 30.7 pg (25.7-33.7); MCHC 34.7 g/dl (32.0-36.0); MEAN CELL VOLUME 88.4 fl (80-96); MEAN PLT VOLUME 8.3 fl (7.5-11.1); PLATELET COUNT 261 K/MM3 (134-434); RBC 4.23 M/mm3 (3.60-5.2); RDW 14.8 % (11.6-15.6); WHITE BLOOD COUNT 5.8 K/mm3 (4.0-10.0)
[2017-05-18 07:50] LABS: ALBUMIN 3.2 g/dl (3.4-5.0); ANION GAP 7 (8-16); BILIRUBIN,TOTAL 6.9 mg/dL (0.2-1.0); BLOOD UREA NITROGEN 5 mg/dL (7-18); CALCIUM 9.1 mg/dL (8.5-10.1); CHLORIDE 108 mmol/L (98-107); CO2 27 mmol/L (21-32); CREATININE 0.6 mg/dL (0.55-1.02); GLUCOSE,RANDOM 115 mg/dL (74-106); PHOSPHOROUS 3.4 mg/dL (2.5-4.9); SGPT/ALT 194 U/L (12-78); SODIUM 142 mmol/L (136-145)
[2017-05-18 08:02] LABS: ALK PHOS 210 U/L (45-117); TOT PROT 6.4 g/dl (6.4-8.2)
[2017-05-18 08:06] LABS: INR 0.91 (0.82-1.09); PROTHROMBIN TIME (PATIENT) 10.3 SEC (9.98-11.88)
[2017-05-18 08:09] LABS: ACTIVATED PTT 22.8 SECONDS (26.9-34.4)
[2017-05-18 08:26] LABS: POTASSIUM 3.9 mmol/L (3.5-5.1)
[2017-05-18 08:27] LABS: MAGNESIUM 2.2 mg/dL (1.8-2.4); SGOT/AST 96 U/L (15-37)
[2017-05-18] MEDS: INSULIN SLIDING SCALE (NOVOLOG) 1 VIAL SQ SCH ×4 (08:43→22:22)
[2017-05-18] MEDS ORDERED: HYDROCHLOROTHIAZIDE 25 MG TABLET (FP) PO SCH (10:00)
[2017-05-18] MEDS ORDERED: CHOLESTYRAMINE/ASPARTAME 4 GM PACKET PO SCH (10:00)
[2017-05-18] MEDS ORDERED: PATIENT'S OWN MEDICATION (NON-FORMULARY) (Bupropion Hcl [Bupropion Xl] 300 MG) PO SCH (10:00)
[2017-05-18] MEDS: PANTOPRAZOLE 40 MG TABLET (FP) PO SCH (11:42)
[2017-05-18] MEDS: METOPROLOL TARTRATE 25 MG TABLET (FP) PO SCH ×2 (11:42→22:21)
--- NOTE | 2017-05-18 13:07 | PN ---
Progress Note, Physician Chief Complaint: patient seen and examined in the ER admitted with RUQ pain and not able to tolerate regular food only able to take clear liquids and jello at home per patient was complaining of pruirits yesterday which has now improved after starting cholestryamine no fever and normal WBC - Current Medication List Current Medications: Active Medications Cholestyramine Resin (Questran Light Packet -) 4 gm PO BID [facility] Last Admin: 05/18/17 11:42 Dose: Not Given Hydrochlorothiazide (Hctz -) 25 mg PO DAILY [facility] Last Admin: 05/18/17 11:42 Dose: Not Given Hyoscyamine Sulfate (Levsin Odt -) 0.125 mg PO TID [facility] Last Admin: 05/18/17 06:58 Dose: 0.125 mg Sodium Chloride (Normal Saline -) 1,000 mls @ 100 mls/hr IV ASDIR [facility] Last Admin: 05/17/17 23:40 Dose: 100 mls/hr Insulin Aspart (Novolog Vial Sliding Scale -) 1 vial SQ ACHS [facility] PRN Reason: Protocol Last Admin: 05/18/17 12:09 Dose: Not Given Metoprolol Tartrate (Lopressor -) 25 mg PO BID [facility] Last Admin: 05/18/17 11:42 Dose: Not Given Morphine Sulfate (Morphine Sulfate) 2 mg IVPUSH Q4H PRN PRN Reason: PAIN LEVEL 7 - 10 Non-Formulary Medication (Bupropion Hcl [Bupropion Xl]) 300 mg PO BID [facility] Ondansetron HCl (Zofran Injection) 4 mg IVPUSH Q6H PRN PRN Reason: NAUSEA Pantoprazole Sodium (Protonix -) 40 mg PO DAILY [facility] Last Admin: 05/18/17 11:42 Dose: Not Given - Objective Vital Signs: Vital Signs Temperature 98.1 F 05/18/17 08:33 Pulse Rate 67 05/18/17 08:33 Respiratory Rate 18 05/18/17 08:33 Blood Pressure 136/77 05/18/17 08:33 O2 Sat by Pulse Oximetry (%) 99 05/18/17 08:33 Constitutional: Yes: Calm Eyes: Yes: Sclera Icterus Cardiovascular: Yes: Regular Rate and Rhythm, S1, S2 Respiratory: Yes: CTA Bilaterally Gastrointestinal: Yes: Tenderness (RUQ on deep palpation) Edema: No Neurological: Yes: Alert, Oriented Labs: CBC, BMP 05/18/17 07:02 05/18/17 07:00 INR, PTT INR 0.91 (0.82-1.09) 05/18/17 07:02 Problem List - Problems (1) Choledocholithiasis Assessment/Plan: surgery and GI on board NPO ivf ct scan ordered \zofran pain control Code(s): K80.50 - CALCULUS OF BILE DUCT W/O CHOLANGITIS OR CHOLECYST W/O OBST (2) HTN (hypertension) Assessment/Plan: metoprolol and hctz Code(s): I10 - ESSENTIAL (PRIMARY) HYPERTENSION
--- NOTE | 2017-05-18 13:31 | EKG ---
Test Reason : Blood Pressure : / mmHG Vent. Rate : 059 BPM Atrial Rate : 059 BPM P-R Int : 166 ms QRS Dur : 094 ms QT Int : 454 ms P-R-T Axes : 024 -06 035 degrees QTc Int : 449 ms SINUS BRADYCARDIA MINIMAL VOLTAGE CRITERIA FOR LVH, MAY BE NORMAL VARIANT T WAVE ABNORMALITY, CONSIDER LATERAL ISCHEMIA ABNORMAL ECG WHEN COMPARED WITH ECG OF 12-JUN-2009 08:54, NO SIGNIFICANT CHANGE WAS FOUND Confirmed by MASSIEL ALMENDAREZ, BERTA ([id number]) on 05/18/2017 1:30:53 PM Referred By: Confirmed By:BERTA RANKIN MD
[2017-05-18 15:34] VITALS: BMI 32.8
[2017-05-18] MEDS: METOCLOPRAMIDE HCL INJECTION 10 MG/2 ML VIAL IVPB SCH (17:54)
[2017-05-18] MEDS: SODIUM CHLORIDE 1,000 ML IV SCH (17:58)
--- NOTE | 2017-05-18 18:35 | CON.GI ---
Consult Consult Specialty:: GI Referred by:: Dr Meléndez/Stacey galeas Reason for Consultation:: obstructive jaundice - History of Present Illness History of Present Illness: 51 y/o F was doing well until 8 days ago when she developed epigastric , ruq pain , progressive jaundice and icteric sclerae associated with nausea and fatty food intolerance. Abdominal ultrasound revealed cholelithiasis and dilated common bile duct stone. - Past Medical History ...LMP Comment: post menopausal ...: No - Past Surgical History Past Surgical History: Yes: - Alcohol/Substance Use Hx Alcohol Use: No - Smoking History Smoking history: Never smoked Have you smoked in the past 12 months: No Home Medications - Allergies Allergies/Adverse Reactions: Allergies Allergy/AdvReac Type Severity Reaction Status Date / Time No Known Allergies Allergy Verified 05/17/17 16:01 - Home Medications Home Medications: Ambulatory Orders Bupropion HCl [Bupropion Xl] 300 mg PO BID 10/30/13 Ergocalciferol (Vitamin D2) [Vitamin D] 50,000 unit PO WEEKLY 10/30/13 Hydrochlorothiazide [Hctz -] 25 mg PO DAILY 10/30/13 Hyoscyamine 0.125 mg PO TID 10/30/13 Loratadine 10 mg PO DAILY 10/30/13 Magnesium Oxide [Mag-Ox -] 400 mg PO DAILY 10/30/13 Metformin HCl [Metformin HCl ER] 500 mg PO BID 10/30/13 Metoprolol Tartrate [Lopressor -] 25 mg PO BID 10/30/13 [place]-3 Acid Ethyl Esters [Lovaza -] 1,000 mg PO BID 10/30/13 Omeprazole [Prilosec] 20 mg PO BID 10/30/13 Physical Exam-GI Vital Signs: Vital Signs Temperature 98 F 05/18/17 15:27 Pulse Rate 68 05/18/17 15:27 Respiratory Rate 18 05/18/17 15:27 Blood Pressure 160/90 05/18/17 15:27 O2 Sat by Pulse Oximetry (%) 98 05/18/17 15:39 Constitutional: Yes: No Distress Eyes: Yes: Sclera Icterus HENT: Yes: Atraumatic Neck: Yes: Supple Cardiovascular: Yes: Regular Rate and Rhythm Respiratory: Yes: CTA Bilaterally ...Palpate: Yes: Soft, Tenderness (mild ruq tenderness). No: Firm/Rigid, Guarding, Mass, Pulsatile Mass, Splenomegaly Labs: CBC, BMP 05/18/17 07:02 05/18/17 07:00 INR, PTT INR 0.91 (0.82-1.09) 05/18/17 07:02 Problem List - Problems (1) Choledocholithiasis Assessment/Plan: R> for Ercp, risk of pancreatitis,bleeding and risk of anesthesia was discussed Code(s): K80.50 - CALCULUS OF BILE DUCT W/O CHOLANGITIS OR CHOLECYST W/O OBST
[2017-05-18] MEDS ORDERED: PT OWN MED DRAWER 7, Y5N ONE (21:15)
[2017-05-19] MEDS: METOCLOPRAMIDE HCL INJECTION 10 MG/2 ML VIAL IVPB SCH ×3 (01:58→18:07)
[2017-05-19] MEDS: SODIUM CHLORIDE 1,000 ML IV SCH ×2 (01:59→15:41)
[2017-05-19] MEDS: HYOSCYAMINE SULFATE 0.125 MG *ODT PO SCH ×3 (06:11→21:05)
[2017-05-19] MEDS: INSULIN SLIDING SCALE (NOVOLOG) 1 VIAL SQ SCH ×4 (06:13→21:06)
[2017-05-19 08:55] LABS: ALBUMIN 3.1 g/dl (3.4-5.0); ANION GAP 9 (8-16); BLOOD UREA NITROGEN 6 mg/dL (7-18); CHLORIDE 107 mmol/L (98-107); CO2 26 mmol/L (21-32); GAMMA GLUTAMYL TRANSPEPTIDASE 403 U/L (5-85); GLUCOSE,RANDOM 101 mg/dL (74-106); POTASSIUM 3.7 mmol/L (3.5-5.1); SODIUM 142 mmol/L (136-145)
[2017-05-19 09:00] LABS: ALK PHOS 221 U/L (45-117); BILIRUBIN,TOTAL 7.8 mg/dL (0.2-1.0); CREATININE 0.6 mg/dL (0.55-1.02); SGOT/AST 100 U/L (15-37); SGPT/ALT 194 U/L (12-78); TOT PROT 6.3 g/dl (6.4-8.2)
[2017-05-19] MEDS ORDERED: PT OWN MED DRAWER 7, Y5N ONE ×2 (10:35→11:14)
[2017-05-19] MEDS: METOPROLOL TARTRATE 25 MG TABLET (FP) PO SCH ×2 (10:40→21:05)
[2017-05-19] MEDS: PANTOPRAZOLE 40 MG TABLET (FP) PO SCH (10:40)
--- NOTE | 2017-05-19 10:54 | PN ---
Progress Note, Physician Chief Complaint: Abdominal pain Cholelithiasis History of Present Illness: NAD, in bed awaiting ERCP seen by Surgery and GI - Current Medication List Current Medications: Active Medications Bupropion HCl (Wellbutrin Xl -) 150 mg PO BID [facility] Last Admin: 05/19/17 10:40 Dose: Not Given Hyoscyamine Sulfate (Levsin Odt -) 0.125 mg PO TID [facility] Last Admin: 05/19/17 06:11 Dose: 0.125 mg Sodium Chloride (Normal Saline -) 1,000 mls @ 100 mls/hr IV ASDIR [facility] Last Admin: 05/19/17 01:59 Dose: 100 mls/hr Lactated Ringer's (Lactated Ringers Solution) 1,000 ml in 1,000 mls @ 100 mls/ hr IV ASDIR [facility] Insulin Aspart (Novolog Vial Sliding Scale -) 1 vial SQ ACHS [facility] PRN Reason: Protocol Last Admin: 05/19/17 06:13 Dose: Not Given Metoclopramide HCl (Reglan Injection -) 10 mg IVPB Q8H [facility] Last Admin: 05/19/17 10:40 Dose: 10 mg Metoprolol Tartrate (Lopressor -) 25 mg PO BID [facility] Last Admin: 05/19/17 10:40 Dose: 25 mg Morphine Sulfate (Morphine Sulfate) 2 mg IVPUSH Q4H PRN PRN Reason: PAIN LEVEL 7 - 10 Ondansetron HCl (Zofran Injection) 4 mg IVPUSH Q6H PRN PRN Reason: NAUSEA Pantoprazole Sodium (Protonix -) 40 mg PO DAILY [facility] Last Admin: 05/19/17 10:40 Dose: 40 mg - Objective Vital Signs: Vital Signs Temperature 97.5 F L 05/19/17 06:00 Pulse Rate 56 L 05/19/17 06:00 Respiratory Rate 18 05/19/17 06:00 Blood Pressure 156/77 05/19/17 06:00 O2 Sat by Pulse Oximetry (%) 98 05/18/17 21:00 Constitutional: Yes: Well Nourished, No Distress, Calm Cardiovascular: Yes: Regular Rate and Rhythm Respiratory: Yes: Regular Gastrointestinal: Yes: Normal Bowel Sounds, Soft, Tenderness (RUQ on palpation) Musculoskeletal: Yes: WNL Extremities: Yes: WNL Edema: No Peripheral Pulses WNL: Yes Neurological: Yes: Alert, Oriented Psychiatric: Yes: Alert, Oriented Labs: CBC, BMP 05/18/17 07:02 05/19/17 07:30 INR, PTT INR 0.91 (0.82-1.09) 05/18/17 07:02 Problem List - Problems (1) Choledocholithiasis Assessment/Plan: -CT abdomen reviewed -Awaiting ERCP -Possible surgical intervention -pain management Code(s): K80.50 - CALCULUS OF BILE DUCT W/O CHOLANGITIS OR CHOLECYST W/O OBST (2) Elevated bilirubin Assessment/Plan: -CT abdomen reviewed -Awaiting ERCP -Possible surgical intervention -pain management -monitor labs -IVF Code(s): R17 - UNSPECIFIED JAUNDICE (3) HTN (hypertension) Assessment/Plan: -decrease IVF to 75 cc/hr -on metoprolol -add lisinopril 5 mg po daily Code(s): I10 - ESSENTIAL (PRIMARY) HYPERTENSION Assessment/Plan see problem list
[2017-05-19] MEDS: LISINOPRIL 5 MG TABLET (FP) PO SCH (15:41)
[2017-05-20] MEDS ORDERED: LACTATED RINGERS SOLUTION 1,000 ML/1,000 ML INFUS.BAG IV SCH (00:01)
[2017-05-20] MEDS: SODIUM CHLORIDE 1,000 ML IV SCH ×3 (00:20→15:44)
[2017-05-20] MEDS: METOCLOPRAMIDE HCL INJECTION 10 MG/2 ML VIAL IVPB SCH ×3 (00:20→17:10)
[2017-05-20] MEDS: HYOSCYAMINE SULFATE 0.125 MG *ODT PO SCH ×2 (06:04→15:46)
[2017-05-20] MEDS: INSULIN SLIDING SCALE (NOVOLOG) 1 VIAL SQ SCH ×4 (06:05→21:14)
[2017-05-20 08:28] LABS: ALBUMIN 3.1 g/dl (3.4-5.0); ANION GAP 6 (8-16); BILIRUBIN,TOTAL 5.9 mg/dL (0.2-1.0); BLOOD UREA NITROGEN 7 mg/dL (7-18); CALCIUM 9.1 mg/dL (8.5-10.1); CHLORIDE 109 mmol/L (98-107); CO2 27 mmol/L (21-32); CREATININE 0.6 mg/dL (0.55-1.02); GLUCOSE,RANDOM 103 mg/dL (74-106); SGPT/ALT 208 U/L (12-78); SODIUM 142 mmol/L (136-145); TOT PROT 6.4 g/dl (6.4-8.2)
[2017-05-20 08:29] LABS: ALK PHOS 210 U/L (45-117)
[2017-05-20 08:38] LABS: INR 0.97 (0.82-1.09)
[2017-05-20 08:40] LABS: POTASSIUM 3.9 mmol/L (3.5-5.1); SGOT/AST 119 U/L (15-37)
[2017-05-20] MEDS ORDERED: PT OWN MED DRAWER 7, Y5N ONE (08:54)
[2017-05-20] MEDS: METOPROLOL TARTRATE 25 MG TABLET (FP) PO SCH ×2 (09:02→21:14)
[2017-05-20] MEDS: LISINOPRIL 5 MG TABLET (FP) PO SCH (09:02)
[2017-05-20] MEDS ORDERED: ceFAZolin SODIUM 1 GM VIAL ONE (12:40)
[2017-05-20] MEDS ORDERED: ceFAZolin SODIUM 1 GM VIAL IVPB ONE (12:51)
[2017-05-20] MEDS ORDERED: oxyCODONE HCL 5 MG TABLET PO PRN ×2 (13:57→14:27)
[2017-05-20] MEDS ORDERED: ONDANSETRON 4 MG/2 ML VIAL IVPUSH PRN ×3 (13:57→14:27)
[2017-05-20] MEDS ORDERED: PROMETHAZINE HCL 25 MG/1 ML VIAL IVPUSH PRN (13:57)
[2017-05-20] MEDS ORDERED: LACTATED RINGERS SOLUTION 1,000 ML IV SCH (14:00)
[2017-05-20] MEDS ORDERED: METOCLOPRAMIDE HCL INJECTION 10 MG/2 ML VIAL IVPB SCH (14:15)
--- NOTE | 2017-05-20 14:18 | PN ---
Progress Note, Physician - Current Medication List Current Medications: Active Medications Bupropion HCl (Wellbutrin Xl -) 150 mg PO BID [facility] Last Admin: 05/20/17 09:06 Dose: 150 mg Fentanyl (Sublimaze Injection -) 25 mcg IVPUSH [id number] PRN PRN Reason: PAIN-PACU ORDER X 4 DOSES ONLY Lactated Ringer's (Lactated Ringers Solution) 1,000 mls @ 75 mls/hr IV ASDIR [facility] Pantoprazole Sodium 40 mg/ (Sodium Chloride) 100 mls @ 200 mls/hr IVPB BID [facility] Ceftriaxone Sodium 1 gm/ (Dextrose) 100 mls @ 200 mls/hr IVPB DAILY [facility] Sodium Chloride (Normal Saline -) 1,000 mls @ 125 mls/hr IV ASDIR [facility] Insulin Aspart (Novolog Vial Sliding Scale -) 1 vial SQ ACHS [facility] PRN Reason: Protocol Last Admin: 05/20/17 12:20 Dose: Not Given Lisinopril (Prinivil) 5 mg PO DAILY [facility] Last Admin: 05/20/17 09:02 Dose: 5 mg Metoclopramide HCl (Reglan Injection -) 10 mg IVPB Q8H [facility] Last Admin: 05/20/17 09:05 Dose: 10 mg Metoclopramide HCl (Reglan Injection -) 10 mg IVPB Q8H-IV [facility] Metoprolol Tartrate (Lopressor -) 25 mg PO BID [facility] Last Admin: 05/20/17 09:02 Dose: 25 mg Morphine Sulfate (Morphine Sulfate) 2 mg IVPUSH Q4H PRN PRN Reason: PAIN LEVEL 7 - 10 Last Admin: 05/20/17 01:42 Dose: 2 mg Ondansetron HCl (Zofran Injection) 4 mg IVPUSH Q6H PRN PRN Reason: NAUSEA Ondansetron HCl (Zofran Injection) 4 mg IVPUSH Q6H PRN PRN Reason: NAUSEA AND/OR VOMITING Oxycodone HCl (Roxicodone -) 10 mg PO Q4H PRN PRN Reason: PAIN LEVEL 6-10 Stop: 05/21/17 13:56 - Objective Vital Signs: Vital Signs Temperature 98.3 F 05/20/17 11:00 Pulse Rate 56 L 05/20/17 11:00 Respiratory Rate 18 05/20/17 11:00 Blood Pressure 142/68 05/20/17 11:00 O2 Sat by Pulse Oximetry (%) 98 05/19/17 21:00 Labs: CBC, BMP 05/18/17 07:02 05/20/17 06:02 INR, PTT INR 0.97 (0.82-1.09) 05/20/17 06:02 Assessment/Plan - Problems (1) Choledocholithiasis Assessment/Plan: -CT abdomen reviewed -Awaiting ERCP -Possible surgical intervention Monday -pain management Code(s): K80.50 - CALCULUS OF BILE DUCT W/O CHOLANGITIS OR CHOLECYST W/O OBST (2) Elevated bilirubin Assessment/Plan: -CT abdomen reviewed -Awaiting ERCP -Possible surgical intervention Monday -pain management -monitor labs -IVF Code(s): R17 - UNSPECIFIED JAUNDICE (3) HTN (hypertension) Assessment/Plan: -decrease IVF to 75 cc/hr -on metoprolol -add lisinopril 5 mg po daily Code(s): I10 - ESSENTIAL (PRIMARY) HYPERTENSION
[2017-05-20] MEDS ORDERED: morphine SULFATE 4 MG/ML VIAL IVPUSH PRN (14:27)
[2017-05-20] MEDS: LACTATED RINGERS SOLUTION 1,000 ML IV SCH (15:44)
[2017-05-20] MEDS: PANTOPRAZOLE 40 MG TABLET (FP) PO SCH (15:45)
[2017-05-20] MEDS ORDERED: cefTRIAXone SODIUM 1 GM VIAL ONE (16:53)
[2017-05-20] MEDS ORDERED: DEXTROSE 5%-WATER - 50 ML IVPB ONE (16:53)
[2017-05-20] MEDS: CEFTRIAXONE 1 GM in DEXTROSE 5%-WATER - 50 ML IVPB SCH (16:57)
[2017-05-20] MEDS: PANTOPRAZOLE SODIUM 40 MG VIAL IVPB SCH (21:14)
[2017-05-20] MEDS ORDERED: PANTOPRAZOLE SODIUM 40 MG in SODIUM CHLORIDE 100 ML IVPB SCH (22:00)
[2017-05-21] MEDS: METOCLOPRAMIDE HCL INJECTION 10 MG/2 ML VIAL IVPB SCH ×3 (02:22→18:59)
[2017-05-21] MEDS: INSULIN SLIDING SCALE (NOVOLOG) 1 VIAL SQ SCH ×4 (06:11→22:10)
[2017-05-21 07:42] LABS: BASO % 0.5 % (0-2.0); EOS % 1.1 % (0-4.5); HEMATOCRIT 33.2 % (32.4-45.2); HEMOGLOBIN 11.4 GM/dL (10.7-15.3); LYMPH % 32.9 % (8-40); MCH 30.5 pg (25.7-33.7); MCHC 34.2 g/dl (32.0-36.0); MEAN CELL VOLUME 89.1 fl (80-96); MEAN PLT VOLUME 8.7 fl (7.5-11.1); MONO % 5.9 % (3.8-10.2); NEUT % 59.6 % (42.8-82.8); PLATELET COUNT 232 K/MM3 (134-434); RBC 3.73 M/mm3 (3.60-5.2); RDW 14.9 % (11.6-15.6); WHITE BLOOD COUNT 6.8 K/mm3 (4.0-10.0)
[2017-05-21 08:10] LABS: ALBUMIN 2.9 g/dl (3.4-5.0); ANION GAP 10 (8-16); BLOOD UREA NITROGEN 20 mg/dL (7-18); CALCIUM 8.4 mg/dL (8.5-10.1); CHLORIDE 107 mmol/L (98-107); CO2 25 mmol/L (21-32); GLUCOSE,RANDOM 105 mg/dL (74-106); POTASSIUM 3.8 mmol/L (3.5-5.1); SGPT/ALT 222 U/L (12-78); SODIUM 142 mmol/L (136-145)
[2017-05-21 08:13] LABS: ALK PHOS 179 U/L (45-117); BILIRUBIN,TOTAL 3.2 mg/dL (0.2-1.0); CREATININE 0.6 mg/dL (0.55-1.02); SGOT/AST 136 U/L (15-37)
--- NOTE | 2017-05-21 09:19 | PN ---
Progress Note (short form) - Note Progress Note: Anesthesiology Post-op POD#1 s/p ERCP under GA. Pt. is resting comfortably in NAD. No n/v. VSS. 51 y.o. female s/p ERCP with stable post-operative course. Continue management as per primary team.
[2017-05-21] MEDS ORDERED: DEXTROSE 5%-WATER - 50 ML IVPB ONE (11:14)
[2017-05-21] MEDS ORDERED: cefTRIAXone SODIUM 1 GM VIAL ONE (11:14)
[2017-05-21] MEDS: LISINOPRIL 5 MG TABLET (FP) PO SCH (11:19)
[2017-05-21] MEDS: CEFTRIAXONE 1 GM in DEXTROSE 5%-WATER - 50 ML IVPB SCH (11:19)
[2017-05-21] MEDS: METOPROLOL TARTRATE 25 MG TABLET (FP) PO SCH ×2 (11:19→21:56)
[2017-05-21] MEDS: PANTOPRAZOLE SODIUM 40 MG VIAL IVPB SCH ×2 (11:23→21:56)
--- NOTE | 2017-05-21 13:52 | PN ---
Progress Note, Physician - Current Medication List Current Medications: Active Medications Bupropion HCl (Wellbutrin Xl -) 150 mg PO BID [facility] Last Admin: 05/21/17 11:19 Dose: 150 mg Ceftriaxone Sodium 1 gm/ (Dextrose) 50 mls @ 100 mls/hr IVPB DAILY [facility] Last Admin: 05/21/17 11:19 Dose: 100 mls/hr Sodium Chloride (Normal Saline -) 1,000 mls @ 125 mls/hr IV ASDIR [facility] Last Admin: 05/20/17 15:44 Dose: Not Given Lactated Ringer's (Lactated Ringers Solution) 1,000 mls @ 75 mls/hr IV ASDIR [facility] Last Admin: 05/20/17 15:44 Dose: Not Given Insulin Aspart (Novolog Vial Sliding Scale -) 1 vial SQ ACHS [facility] PRN Reason: Protocol Last Admin: 05/21/17 11:20 Dose: Not Given Lisinopril (Prinivil) 5 mg PO DAILY [facility] Last Admin: 05/21/17 11:19 Dose: 5 mg Metoclopramide HCl (Reglan Injection -) 10 mg IVPB Q8H-IV [facility] Last Admin: 05/21/17 11:19 Dose: 10 mg Metoprolol Tartrate (Lopressor -) 25 mg PO BID [facility] Last Admin: 05/21/17 11:19 Dose: 25 mg Morphine Sulfate (Morphine Sulfate) 2 mg IVPUSH Q4H PRN PRN Reason: PAIN LEVEL 7 - 10 Ondansetron HCl (Zofran Injection) 4 mg IVPUSH Q6H PRN PRN Reason: NAUSEA AND/OR VOMITING Last Admin: 05/20/17 15:17 Dose: 4 mg Oxycodone HCl (Roxicodone -) 10 mg PO Q4H PRN PRN Reason: PAIN LEVEL 6-10 Stop: 05/21/17 13:56 Pantoprazole Sodium (Protonix Iv) 40 mg IVPB BID [facility] Last Admin: 05/21/17 11:23 Dose: 40 mg - Objective Vital Signs: Vital Signs Temperature 98.8 F 05/21/17 11:00 Pulse Rate 62 05/21/17 11:00 Respiratory Rate 18 05/21/17 11:00 Blood Pressure 140/80 05/21/17 11:00 O2 Sat by Pulse Oximetry (%) 100 05/20/17 21:00 Cardiovascular: Yes: Regular Rate and Rhythm Respiratory: Yes: Regular, CTA Bilaterally Gastrointestinal: Yes: Normal Bowel Sounds, Soft, Tenderness, Epigastrium Labs: CBC, BMP 05/21/17 06:10 05/21/17 06:10 INR, PTT INR 0.97 (0.82-1.09) 05/20/17 06:02 Assessment/Plan - Problems (1) Choledocholithiasis Assessment/Plan: -CT abdomen reviewed -s/p ERCP -Possible surgical intervention Monday -pain management Code(s): K80.50 - CALCULUS OF BILE DUCT W/O CHOLANGITIS OR CHOLECYST W/O OBST (2) Elevated bilirubin Assessment/Plan: -CT abdomen reviewed -Awaiting ERCP -Possible surgical intervention Monday -pain management -monitor labs -IVF Code(s): R17 - UNSPECIFIED JAUNDICE (3) HTN (hypertension) Assessment/Plan: -decrease IVF to 75 cc/hr -on metoprolol -add lisinopril 5 mg po daily Code(s): I10 - ESSENTIAL (PRIMARY) HYPERTENSION
[2017-05-21] MEDS: LACTATED RINGERS SOLUTION 1,000 ML IV SCH (15:12)
--- NOTE | 2017-05-21 15:51 | PN ---
Progress Note, Physician Chief Complaint: abdominal pain History of Present Illness: 51 yo PMH HTN, DM type 2 who presented with 4 days of constant RUQ pain. Attests to weeks of postprandial colicky RUQ pain, but attributed it to her GERD. stable following ERCP yesterday. no complaints - Current Medication List Current Medications: Active Medications Bupropion HCl (Wellbutrin Xl -) 150 mg PO BID [facility] Last Admin: 05/21/17 11:19 Dose: 150 mg Ceftriaxone Sodium 1 gm/ (Dextrose) 50 mls @ 100 mls/hr IVPB DAILY [facility] Last Admin: 05/21/17 11:19 Dose: 100 mls/hr Sodium Chloride (Normal Saline -) 1,000 mls @ 125 mls/hr IV ASDIR [facility] Last Admin: 05/20/17 15:44 Dose: Not Given Lactated Ringer's (Lactated Ringers Solution) 1,000 mls @ 75 mls/hr IV ASDIR [facility] Last Admin: 05/21/17 15:12 Dose: Not Given Insulin Aspart (Novolog Vial Sliding Scale -) 1 vial SQ ACHS [facility] PRN Reason: Protocol Last Admin: 05/21/17 11:20 Dose: Not Given Lisinopril (Prinivil) 5 mg PO DAILY [facility] Last Admin: 05/21/17 11:19 Dose: 5 mg Metoclopramide HCl (Reglan Injection -) 10 mg IVPB Q8H-IV [facility] Last Admin: 05/21/17 11:19 Dose: 10 mg Metoprolol Tartrate (Lopressor -) 25 mg PO BID [facility] Last Admin: 05/21/17 11:19 Dose: 25 mg Morphine Sulfate (Morphine Sulfate) 2 mg IVPUSH Q4H PRN PRN Reason: PAIN LEVEL 7 - 10 Ondansetron HCl (Zofran Injection) 4 mg IVPUSH Q6H PRN PRN Reason: NAUSEA AND/OR VOMITING Last Admin: 05/20/17 15:17 Dose: 4 mg Pantoprazole Sodium (Protonix Iv) 40 mg IVPB BID [facility] Last Admin: 05/21/17 11:23 Dose: 40 mg - Objective Vital Signs: Vital Signs Temperature 98.2 F 05/21/17 15:40 Pulse Rate 80 05/21/17 15:40 Respiratory Rate 18 05/21/17 15:40 Blood Pressure 138/76 05/21/17 15:40 O2 Sat by Pulse Oximetry (%) 100 05/20/17 21:00 Vital Signs Period Temp Pulse Resp BP Sys/Barrett Pulse Ox Last 24 Hr 98.0 F-98.8 F 50-80 18-20 120-142/65-80 100 Constitutional: Yes: No Distress, Calm Eyes: Yes: Conjunctiva Clear, EOM Intact HENT: Yes: Atraumatic, Normocephalic Neck: Yes: Supple, Trachea Midline Cardiovascular: Yes: Regular Rate and Rhythm, S1, S2 Respiratory: Yes: Regular, CTA Bilaterally Gastrointestinal: Yes: Normal Bowel Sounds, Soft, Abdomen, Obese. No: Tenderness, Tenderness, Epigastrium, Tenderness, Rebound ...Rectal Exam: Yes: Deferred Genitourinary: No: CVA Tenderness - Left, CVA Tenderness - Right Extremities: Yes: Cool. No: Cyanosis Integumentary: Yes: Jaundice. No: Rash Neurological: Yes: Alert, Oriented Psychiatric: Yes: Alert, Oriented Labs: CBC, BMP 05/21/17 06:10 05/21/17 06:10 INR, PTT INR 0.97 (0.82-1.09) 05/20/17 06:02 Problem List - Problems (1) Cholelithiasis Assessment/Plan: 51yo female with jaundice Cholelithiasis s/p ERCP, with decreasing tbili >6--> 3.2 Plan for OR 05/22 Laparoscopic cholecystectomy, possible open Consent on the chart Orders for NPO GI intervention reviewed and appreciated Code(s): K80.20 - CALCULUS OF GALLBLADDER W/O CHOLECYSTITIS W/O OBSTRUCTION (2) Choledocholithiasis Code(s): K80.50 - CALCULUS OF BILE DUCT W/O CHOLANGITIS OR CHOLECYST W/O OBST (3) Elevated bilirubin Code(s): R17 - UNSPECIFIED JAUNDICE (4) HTN (hypertension) Code(s): I10 - ESSENTIAL (PRIMARY) HYPERTENSION
[2017-05-21] MEDS: SODIUM CHLORIDE 1,000 ML IV SCH (18:59)
[2017-05-22] MEDS: METOCLOPRAMIDE HCL INJECTION 10 MG/2 ML VIAL IVPB SCH ×2 (01:27→10:11)
[2017-05-22] MEDS: INSULIN SLIDING SCALE (NOVOLOG) 1 VIAL SQ SCH (06:38)
[2017-05-22 08:02] LABS: BASO % 0.5 % (0-2.0); EOS % 0.7 % (0-4.5); HEMATOCRIT 32.4 % (32.4-45.2); HEMOGLOBIN 11.1 GM/dL (10.7-15.3); LYMPH % 21.8 % (8-40); MCH 30.6 pg (25.7-33.7); MCHC 34.4 g/dl (32.0-36.0); MEAN CELL VOLUME 89.1 fl (80-96); MEAN PLT VOLUME 8.7 fl (7.5-11.1); MONO % 5.4 % (3.8-10.2); NEUT % 71.6 % (42.8-82.8); PLATELET COUNT 246 K/MM3 (134-434); RBC 3.64 M/mm3 (3.60-5.2); RDW 14.5 % (11.6-15.6); WHITE BLOOD COUNT 8.2 K/mm3 (4.0-10.0)
[2017-05-22 08:23] LABS: CHLORIDE 107 mmol/L (98-107); POTASSIUM 3.9 mmol/L (3.5-5.1); SODIUM 140 mmol/L (136-145)
[2017-05-22 08:29] LABS: ALBUMIN 3.1 g/dl (3.4-5.0); ALK PHOS 177 U/L (45-117); ANION GAP 5 (8-16); BILIRUBIN,TOTAL 2.4 mg/dL (0.2-1.0); BLOOD UREA NITROGEN 10 mg/dL (7-18); CALCIUM 8.5 mg/dL (8.5-10.1); CO2 28 mmol/L (21-32); CREATININE 0.5 mg/dL (0.55-1.02); GLUCOSE,RANDOM 105 mg/dL (74-106); SGOT/AST 140 U/L (15-37); SGPT/ALT 245 U/L (12-78); TOT PROT 6.3 g/dl (6.4-8.2)
[2017-05-22] MEDS ORDERED: PT OWN MED DRAWER 7, Y5N ONE ×3 (09:38→21:07)
[2017-05-22] MEDS ORDERED: cefTRIAXone SODIUM 1 GM VIAL ONE (09:39)
[2017-05-22] MEDS ORDERED: DEXTROSE 5%-WATER - 50 ML IVPB ONE (09:40)
[2017-05-22] MEDS: PANTOPRAZOLE SODIUM 40 MG VIAL IVPB SCH (10:10)
[2017-05-22] MEDS: METOPROLOL TARTRATE 25 MG TABLET (FP) PO SCH ×2 (10:10→21:33)
[2017-05-22] MEDS: CEFTRIAXONE 1 GM in DEXTROSE 5%-WATER - 50 ML IVPB SCH (10:10)
[2017-05-22] MEDS: LISINOPRIL 5 MG TABLET (FP) PO SCH (10:11)
--- NOTE | 2017-05-22 10:49 | PN ---
Progress Note, Physician Chief Complaint: Abdominal pain Cholelithiasis History of Present Illness: NAD, in bed seen by Surgery and GI For OR today for possible open cholecystectomy - Current Medication List Current Medications: Active Medications Bupropion HCl (Wellbutrin Xl -) 150 mg PO BID [facility] Last Admin: 05/22/17 10:11 Dose: 150 mg Ceftriaxone Sodium 1 gm/ (Dextrose) 50 mls @ 100 mls/hr IVPB DAILY [facility] Last Admin: 05/22/17 10:10 Dose: 100 mls/hr Sodium Chloride (Normal Saline -) 1,000 mls @ 125 mls/hr IV ASDIR [facility] Last Admin: 05/21/17 18:59 Dose: 125 mls/hr Insulin Aspart (Novolog Vial Sliding Scale -) 1 vial SQ ACHS [facility] PRN Reason: Protocol Last Admin: 05/22/17 06:38 Dose: Not Given Lisinopril (Prinivil) 5 mg PO DAILY [facility] Last Admin: 05/22/17 10:11 Dose: 5 mg Metoclopramide HCl (Reglan Injection -) 10 mg IVPB Q8H-IV [facility] Last Admin: 05/22/17 10:11 Dose: 10 mg Metoprolol Tartrate (Lopressor -) 25 mg PO BID [facility] Last Admin: 05/22/17 10:10 Dose: 25 mg Morphine Sulfate (Morphine Sulfate) 2 mg IVPUSH Q4H PRN PRN Reason: PAIN LEVEL 7 - 10 Last Admin: 05/22/17 01:27 Dose: 2 mg Ondansetron HCl (Zofran Injection) 4 mg IVPUSH Q6H PRN PRN Reason: NAUSEA AND/OR VOMITING Last Admin: 05/20/17 15:17 Dose: 4 mg Pantoprazole Sodium (Protonix Iv) 40 mg IVPB BID [facility] Last Admin: 05/22/17 10:10 Dose: 40 mg - Objective Vital Signs: Vital Signs Temperature 98.3 F 05/22/17 06:00 Pulse Rate 62 05/22/17 06:00 Respiratory Rate 18 05/22/17 06:00 Blood Pressure 138/83 05/22/17 06:00 O2 Sat by Pulse Oximetry (%) 98 05/21/17 21:00 Constitutional: Yes: Well Nourished, No Distress, Calm Cardiovascular: Yes: Regular Rate and Rhythm Respiratory: Yes: Regular Gastrointestinal: Yes: Soft, Hypoactive Bowel Sounds, Tenderness (RUQ) Musculoskeletal: Yes: WNL Extremities: Yes: WNL Edema: No Peripheral Pulses WNL: Yes Neurological: Yes: Alert, Oriented Psychiatric: Yes: Alert, Oriented Labs: CBC, BMP 05/22/17 06:30 05/22/17 06:30 INR, PTT INR 0.97 (0.82-1.09) 05/20/17 06:02 Problem List - Problems (1) Choledocholithiasis Assessment/Plan: -CT abdomen reviewed -NPO -IVF -Seen by Surgery -for OR today for possible open cholecystectomy -pain management Code(s): K80.50 - CALCULUS OF BILE DUCT W/O CHOLANGITIS OR CHOLECYST W/O OBST (2) Elevated bilirubin Assessment/Plan: -CT abdomen reviewed -ERCP done -For OR today -pain management -monitor labs -IVF Code(s): R17 - UNSPECIFIED JAUNDICE (3) HTN (hypertension) Assessment/Plan: -improved -on metoprolol -add lisinopril 5 mg po daily Code(s): I10 - ESSENTIAL (PRIMARY) HYPERTENSION (4) Diabetes Assessment/Plan: Check A1C -on metformin at home Code(s): E11.9 - TYPE 2 DIABETES MELLITUS WITHOUT COMPLICATIONS Qualifiers: Diabetes mellitus type: type 2 Assessment/Plan see problem list
[2017-05-22] MEDS ORDERED: BUPIVACAINE HCL/PF 0.5% (5MG/ML) 10 ML VIAL ONE (11:37)
[2017-05-22] MEDS ORDERED: LIDOCAINE HCL/PF 2% SDV 5ML VIAL ONE (11:52)
[2017-05-22] MEDS ORDERED: MIDAZOLAM HCL 2 MG/2 ML SINGLE DOSE VIAL ONE (11:52)
[2017-05-22] MEDS ORDERED: fentaNYL CITRATE 250 MCG/5 ML VIAL ONE (11:52)
[2017-05-22] MEDS ORDERED: PROPOFOL 20 ML ONE (11:52)
--- NOTE | 2017-05-22 12:49 | EKG ---
Test Reason : Blood Pressure : / mmHG Vent. Rate : 052 BPM Atrial Rate : 052 BPM P-R Int : 150 ms QRS Dur : 092 ms QT Int : 462 ms P-R-T Axes : 014 -05 065 degrees QTc Int : 429 ms SINUS BRADYCARDIA MODERATE VOLTAGE CRITERIA FOR LVH, MAY BE NORMAL VARIANT T WAVE ABNORMALITY, CONSIDER LATERAL ISCHEMIA ABNORMAL ECG WHEN COMPARED WITH ECG OF 17-MAY-2017 22:36, NO SIGNIFICANT CHANGE WAS FOUND Confirmed by CLARE CHANG MD ([id number]) on 05/22/2017 12:49:01 PM Referred By: Justo KOCH Confirmed By:CLARE CHANG MD
[2017-05-22] MEDS ORDERED: BUPIVACAINE HCL/PF 0.5% (5MG/ML) 10 ML VIAL IJ ONE ×2 (13:08→13:46)
[2017-05-22] MEDS ORDERED: DEXAMETHASONE SOD PHOSPHATE 4 MG/1 ML VIAL ONE (13:10)
[2017-05-22] MEDS ORDERED: GLYCOPYRROLATE 0.2 MG/1 ML VIAL ONE (13:10)
[2017-05-22] MEDS ORDERED: NEOSTIGMINE METHYLSULFATE 0.5 MG/ML - 10 ML MDV ONE (13:10)
[2017-05-22] MEDS ORDERED: IBUPROFEN 600 MG TABLET (FP) PO PRN ×2 (14:24→14:35)
[2017-05-22] MEDS ORDERED: ACETAMINOPHEN 325 MG TABLET (FP) PO PRN ×2 (14:24→14:35)
[2017-05-22] MEDS ORDERED: morphine SULFATE 4 MG/ML VIAL IVPUSH PRN (14:25)
[2017-05-22] MEDS ORDERED: ONDANSETRON 4 MG/2 ML VIAL IVPUSH PRN (14:35)
--- NOTE | 2017-05-22 14:37 | OP ---
Operative Note - Note: Operative Date: 05/22/17 Pre-Operative Diagnosis: Common bile duct obstructing stone Operation: laparoscopic cholecystectomy Findings: impacted stone in the cystic duct that was milked back into the gall bladder. critical view identified. distended gallbladder Post-Operative Diagnosis: Same as Pre-op Surgeon: Nolan Sommers Museum Docent: Lance Royal Anesthesia: General, Local (marcaine 0.5% 20ml) Specimens Removed: gall bladder and stones Estimated Blood Loss (mls): 15 Fluid Volume Replaced (mls): 600 (crystalloid ) Operative Report Dictated: Yes
[2017-05-22] MEDS: KETOROLAC TROMETHAMINE 30 MG/1 ML VIAL IVPUSH ONE ×2 (14:40→17:44)
[2017-05-22] MEDS: METOCLOPRAMIDE HCL INJECTION 10 MG/2 ML VIAL IVPUSH SCH (18:01)
[2017-05-22] MEDS: morphine SULFATE 4 MG/ML VIAL IVPUSH PRN (18:01)
[2017-05-22] MEDS: SODIUM CHLORIDE 1,000 ML IV SCH ×2 (18:01→23:00)
--- NOTE | 2017-05-22 20:32 | OP ---
DATE OF OPERATION: 05/22/2017 PREOPERATIVE DIAGNOSIS: Common bile duct obstructing stone. POSTOPERATIVE DIAGNOSIS: Common bile duct obstructing stone. PROCEDURE: Laparoscopic cholecystectomy. ATTENDING SURGEON: Nolan Sommers MD WOOD SETTER: Lance Royal MD ANESTHESIOLOGIST: Perlita Sena MD ANESTHESIA: General with local. Local consisted of 0.5% Marcaine. A total of 20 mL given at the port site area in block. ESTIMATED BLOOD LOSS: 15 mL ESTIMATED INTRAVENOUS FLUID: Crystalloid 600 administered. SPECIMEN: Gallbladder and stones. BRIEF FINDINGS: Distended gallbladder. Stone was impacted, cystic duct, was milked back into the gallbladder. Critical view identified. INDICATION: Patient is a 51-year-old female with a history of right upper quadrant pain with jaundice, was acute in onset over a period of one week. She had diagnostic imaging confirming a stone in the CBD which was dilated to 1.2 cm. She had an ERCP and placement of a stent. She had resolution of her total bilirubin from above 6 to less than 3. At which point, she was optimized preoperatively and taken for cholecystectomy. She was counseled regarding risks, benefits, and alternatives, signed informed consent, and was taken for the procedure. DESCRIPTION OF PROCEDURE: Patient was brought to the operating room, placed in supine position on the operating table with the right arm tucked and the left arm extended at 90 degrees perpendicular to the body's axis. Bilateral lower extremities had SCDs placed to compression. Patient was induced with general anesthesia, endotracheally intubated without incident by Anesthesia. She received intravenous antibiotics preoperatively. The anterior abdominal wall was shaved, prepped, and draped in standard surgical field block in the upper abdomen. We proceeded first with a formal timeout after the patient was draped, identifying the operative site and the procedure. With all parties in agreement, we began with a 12-mm Benny entry in the supraumbilical position. At which point, we proceeded then with a 15-blade scalpel to open the incision, deepened and widened through the subcutaneous tissue with Bovie cautery to the anterior abdominal fascia which was then elevated and entered bluntly towards the umbilicus. The 12-mm Benny port was then installed and a pneumoperitoneum to 15 mmHg. Prior to that installation, a 0 Vicryl stitch was laid in a figure-of-8 fashion to ablate the space postoperatively. First, after inspecting the entry site which was atraumatic, we then identified the gallbladder which appeared distended in the right upper quadrant at the liver border. Additional 5-mm port sites were installed at the subxiphoid position and two in the right abdomen. Gallbladder was retracted cranially and towards the left upper abdomen at the diaphragm, and the infundibulum was grasped and retracted towards the right side of the abdomen. Planes were developed anterior and posterior to the cystic duct which could easily be identified after the peritoneum was taken down with its fatty attachments. A plane was developed between the cystic duct and artery, leaving a towards the specimen. Once a critical view had been established and Bovie cautery had been used to dissect the gallbladder slightly away from the hepatic plate, the structures were clipped with 5-mm clips. The cystic artery and clips for the enlarged cystic duct. This was after a stone was milked back from the cystic duct into the gallbladder. When structures were clipped and the critical view was identified, the structures were then transected. The gallbladder was removed from the remainder of the hepatic bed using Bovie cautery to its dome. The gallbladder was then retrieved after re-siting the camera to the subxiphoid position from the umbilicus with an Endo Catch bag, 10 mm. With it completely removed and minimal spillage, the liver bed was inspected and cauterized where necessary. The gallbladder was then passed off for pathologic diagnosis and the hepatic bed was slightly irrigated and clots were suctioned from the abdomen. With the irrigation removed, the trocars were removed under direct visualization to assure hemostasis. The pneumoperitoneum was relieved, and the Benny port was then tied. The skin incisions were closed with 4-0 Vicryl in interrupted fashion at the subcuticle, and the umbilical Benny entry was closed in a running subcuticular fashion. Skin was cleaned. Sterile dressings were placed including benzoin and Steri-Strips, gauze sponges, and Tegaderms. Patient was awoken from general anesthesia, having tolerated the procedure well. Counts were correct. MD IVETTE Peña/[id number]
[2017-05-22] MEDS: PANTOPRAZOLE SODIUM 40 MG VIAL IVPUSH SCH (21:33)
[2017-05-23] MEDS: METOCLOPRAMIDE HCL INJECTION 10 MG/2 ML VIAL IVPUSH SCH ×3 (01:50→19:06)
[2017-05-23] MEDS: SODIUM CHLORIDE 1,000 ML IV SCH (07:00)
[2017-05-23 08:03] LABS: BASO % 0.3 % (0-2.0); EOS % 0.2 % (0-4.5); HEMATOCRIT 31.5 % (32.4-45.2); HEMOGLOBIN 10.8 GM/dL (10.7-15.3); LYMPH % 26.3 % (8-40); MCH 30.5 pg (25.7-33.7); MCHC 34.2 g/dl (32.0-36.0); MEAN CELL VOLUME 89.1 fl (80-96); MEAN PLT VOLUME 8.9 fl (7.5-11.1); MONO % 6.7 % (3.8-10.2); NEUT % 66.5 % (42.8-82.8); PLATELET COUNT 246 K/MM3 (134-434); RBC 3.54 M/mm3 (3.60-5.2); RDW 14.5 % (11.6-15.6); WHITE BLOOD COUNT 8.8 K/mm3 (4.0-10.0)
--- NOTE | 2017-05-23 08:09 | PN ---
Progress Note (short form) - Note Progress Note: Post op day#1.S/P Laproscopic cholecystectomy under [place] uneventful.Patient stable.No any anesthesia related problem.Patient DC from the anesthesia care.
[2017-05-23 08:38] LABS: CHLORIDE 109 mmol/L (98-107); CREATININE 0.5 mg/dL (0.55-1.02); POTASSIUM 4.1 mmol/L (3.5-5.1); SGOT/AST 130 U/L (15-37); SODIUM 142 mmol/L (136-145)
[2017-05-23 08:49] LABS: ALBUMIN 3.2 g/dl (3.4-5.0); ALK PHOS 156 U/L (45-117); ANION GAP 6 (8-16); BILIRUBIN,TOTAL 1.9 mg/dL (0.2-1.0); BLOOD UREA NITROGEN 9 mg/dL (7-18); CALCIUM 8.7 mg/dL (8.5-10.1); CO2 27 mmol/L (21-32); GLUCOSE,RANDOM 89 mg/dL (74-106); SGPT/ALT 242 U/L (12-78)
--- NOTE | 2017-05-23 09:33 | PN ---
Progress Note, Physician Chief Complaint: abdominal pain History of Present Illness: 51 yo PMH HTN, DM type 2 who presented with 4 days of constant RUQ pain. Attests to weeks of postprandial colicky RUQ pain, but attributed it to her GERD. stable following ERCP yesterday. stable overnight post operatively. reports feeling weak. - Current Medication List Current Medications: Active Medications Acetaminophen (Tylenol -) 650 mg PO Q6H PRN PRN Reason: PAIN LEVEL 1-5 Bupropion HCl (Wellbutrin Xl -) 150 mg PO BID [facility] Last Admin: 05/22/17 21:33 Dose: 150 mg Ceftriaxone Sodium 1 gm/ (Dextrose) 50 mls @ 100 mls/hr IVPB DAILY [facility] Sodium Chloride (Normal Saline -) 1,000 mls @ 125 mls/hr IV ASDIR [facility] Last Admin: 05/23/17 07:00 Dose: 125 mls/hr Ibuprofen (Motrin -) 600 mg PO Q6H PRN PRN Reason: PAIN LEVEL 1-5 Lisinopril (Prinivil) 5 mg PO DAILY [facility] Metoclopramide HCl (Reglan Injection -) 10 mg IVPUSH Q8H-IV [facility] Last Admin: 05/23/17 01:50 Dose: 10 mg Metoprolol Tartrate (Lopressor -) 25 mg PO BID [facility] Last Admin: 05/22/17 21:33 Dose: 25 mg Morphine Sulfate (Morphine Sulfate) 2 mg IVPUSH Q6H PRN PRN Reason: PAIN LEVEL 7 - 10 Last Admin: 05/22/17 18:01 Dose: 2 mg Ondansetron HCl (Zofran Injection) 4 mg IVPUSH Q6H PRN PRN Reason: NAUSEA AND/OR VOMITING Pantoprazole Sodium (Protonix Iv) 40 mg IVPUSH BID [facility] Last Admin: 05/22/17 21:33 Dose: 40 mg - Objective Vital Signs: Vital Signs Temperature 98.4 F 05/23/17 06:36 Pulse Rate 60 05/23/17 06:36 Respiratory Rate 20 05/23/17 06:36 Blood Pressure 145/83 05/23/17 06:36 O2 Sat by Pulse Oximetry (%) 99 05/22/17 21:00 Vital Signs Period Temp Pulse Resp BP Sys/Barrett Pulse Ox Last 24 Hr 95 F-98.6 F 60-69 15-20 136-174/73-96 95-100 Constitutional: Yes: Well Nourished, No Distress, Calm Eyes: Yes: Conjunctiva Clear, EOM Intact HENT: Yes: Atraumatic, Normocephalic Neck: Yes: Supple, Trachea Midline Cardiovascular: Yes: Regular Rate and Rhythm, S1, S2 Respiratory: Yes: Regular, CTA Bilaterally Gastrointestinal: Yes: Normal Bowel Sounds, Soft, Abdomen, Obese, Tenderness ( incisional) ...Rectal Exam: Yes: Deferred Wound/Incision: Yes: Clean/Dry, Well Approximated, Dressing Dry and Intact Neurological: Yes: Alert, Oriented Psychiatric: Yes: Alert, Oriented Labs: CBC,CMP WBC 8.8 K/mm3 (4.0-10.0) 05/23/17 06:40 RBC 3.54 M/mm3 (3.60-5.2) L 05/23/17 06:40 Hgb 10.8 GM/dL (10.7-15.3) 05/23/17 06:40 Hct 31.5 % (32.4-45.2) L 05/23/17 06:40 MCV 89.1 fl (80-96) 05/23/17 06:40 MCH 30.5 pg (25.7-33.7) 05/23/17 06:40 MCHC 34.2 g/dl (32.0-36.0) 05/23/17 06:40 RDW 14.5 % (11.6-15.6) 05/23/17 06:40 Plt Count 246 K/MM3 (134-434) 05/23/17 06:40 MPV 8.9 fl (7.5-11.1) 05/23/17 06:40 Neutrophils % 66.5 % (42.8-82.8) 05/23/17 06:40 Lymphocytes % 26.3 % (8-40) D 05/23/17 06:40 Monocytes % 6.7 % (3.8-10.2) 05/23/17 06:40 Eosinophils % 0.2 % (0-4.5) 05/23/17 06:40 Basophils % 0.3 % (0-2.0) 05/23/17 06:40 Sodium 142 mmol/L (136-145) 05/23/17 06:40 Potassium 4.1 mmol/L (3.5-5.1) 05/23/17 06:40 Chloride 109 mmol/L (98-107) H 05/23/17 06:40 Carbon Dioxide 27 mmol/L (21-32) 05/23/17 06:40 Anion Gap 6 (8-16) L 05/23/17 06:40 BUN 9 mg/dL (7-18) 05/23/17 06:40 Creatinine 0.5 mg/dL (0.55-1.02) L 05/23/17 06:40 Creat Clearance w eGFR > 60 (>60) 05/23/17 06:40 POC Glucometer 154 UNITS (80-120) 05/22/17 17:27 Random Glucose 89 mg/dL (74-106) 05/23/17 06:40 Hemoglobin A1c % 6.0 % (4.8-6.0) 05/22/17 06:30 Calcium 8.7 mg/dL (8.5-10.1) 05/23/17 06:40 Phosphorus 3.4 mg/dL (2.5-4.9) 05/18/17 07:00 Magnesium 2.2 mg/dL (1.8-2.4) 05/18/17 07:00 Total Bilirubin 1.9 mg/dL (0.2-1.0) H D 05/23/17 06:40 Direct Bilirubin 6.1 mg/dL (0.0-0.2) H 05/18/17 07:00 GGT 403 U/L (5-85) H 05/19/17 07:30 AST 130 U/L (15-37) H 05/23/17 06:40 ALT 242 U/L (12-78) H 05/23/17 06:40 Alkaline Phosphatase 156 U/L (45-117) H 05/23/17 06:40 Total Protein 6.0 g/dl (6.4-8.2) L 05/23/17 06:40 Albumin 3.2 g/dl (3.4-5.0) L 05/23/17 06:40 Total Amylase 30 U/L (25-115) 05/17/17 16:37 Lipase 196 U/L (73-393) 05/17/17 16:38 Problem List - Problems (1) Cholelithiasis Assessment/Plan: 51yo female with jaundice Cholelithiasis s/p ERCP, with decreasing tbili >6--> 1.9, POD#1 s/p laparoscopic cholecystectomy, tolerating diet, sitting at the bedside, afebrile, voiding. Advance diet as tolerated adequate analgesia OOB and ambulate encourage IS May be be discharged at the discretion of primary team Dr. Royal is covering 05/24 to 05/28 Code(s): K80.20 - CALCULUS OF GALLBLADDER W/O CHOLECYSTITIS W/O OBSTRUCTION Qualifiers: Cholelithiasis location: gallbladder and bile duct Biliary obstruction: with biliary obstruction (2) Choledocholithiasis Code(s): K80.50 - CALCULUS OF BILE DUCT W/O CHOLANGITIS OR CHOLECYST W/O OBST (3) Elevated bilirubin Code(s): R17 - UNSPECIFIED JAUNDICE (4) HTN (hypertension) Code(s): I10 - ESSENTIAL (PRIMARY) HYPERTENSION Qualifiers: Hypertension type: essential hypertension Qualified Code(s): I10 - Essential (primary) hypertension
[2017-05-23] MEDS ORDERED: cefTRIAXone SODIUM 1 GM VIAL ONE (10:27)
[2017-05-23] MEDS ORDERED: DEXTROSE 5%-WATER - 50 ML IVPB ONE (10:27)
--- NOTE | 2017-05-23 10:33 | PN ---
Progress Note, Physician Chief Complaint: Abdominal pain Cholelithiasis History of Present Illness: Pre-Operative Diagnosis: Common bile duct obstructing stone Operation: laparoscopic cholecystectomy Findings: impacted stone in the cystic duct that was milked back into the gall bladder. critical view identified. distended gallbladder Post-Operative Diagnosis: Same as Pre-op Surgeon: Nolan Sommers Software Engineering Analyst: Lance Royal POD#1 [place] nauseous this AM, feeling better now tolerating PO intake echo being done at bedside - Current Medication List Current Medications: Active Medications Acetaminophen (Tylenol -) 650 mg PO Q6H PRN PRN Reason: PAIN LEVEL 1-5 Bupropion HCl (Wellbutrin Xl -) 150 mg PO BID [facility] Last Admin: 05/22/17 21:33 Dose: 150 mg Ceftriaxone Sodium 1 gm/ (Dextrose) 50 mls @ 100 mls/hr IVPB DAILY [facility] Sodium Chloride (Normal Saline -) 1,000 mls @ 125 mls/hr IV ASDIR [facility] Last Admin: 05/23/17 07:00 Dose: 125 mls/hr Ibuprofen (Motrin -) 600 mg PO Q6H PRN PRN Reason: PAIN LEVEL 1-5 Lisinopril (Prinivil) 5 mg PO DAILY [facility] Metoclopramide HCl (Reglan Injection -) 10 mg IVPUSH Q8H-IV [facility] Last Admin: 05/23/17 01:50 Dose: 10 mg Metoprolol Tartrate (Lopressor -) 25 mg PO BID [facility] Last Admin: 05/22/17 21:33 Dose: 25 mg Morphine Sulfate (Morphine Sulfate) 2 mg IVPUSH Q6H PRN PRN Reason: PAIN LEVEL 7 - 10 Last Admin: 05/22/17 18:01 Dose: 2 mg Ondansetron HCl (Zofran Injection) 4 mg IVPUSH Q6H PRN PRN Reason: NAUSEA AND/OR VOMITING Pantoprazole Sodium (Protonix Iv) 40 mg IVPUSH BID [facility] Last Admin: 05/22/17 21:33 Dose: 40 mg - Objective Vital Signs: Vital Signs Temperature 98.4 F 05/23/17 06:36 Pulse Rate 60 05/23/17 06:36 Respiratory Rate 20 05/23/17 06:36 Blood Pressure 145/83 05/23/17 06:36 O2 Sat by Pulse Oximetry (%) 99 05/22/17 21:00 Constitutional: Yes: Well Nourished, No Distress, Calm Cardiovascular: Yes: Regular Rate and Rhythm Respiratory: Yes: Regular Labs: CBC, BMP 05/23/17 06:40 05/23/17 06:40 INR, PTT INR 0.97 (0.82-1.09) 05/20/17 06:02 Problem List - Problems (1) Choledocholithiasis Assessment/Plan: -CT abdomen reviewed -tolerating PO intake -IVF -Seen by Surgery -pain management Code(s): K80.50 - CALCULUS OF BILE DUCT W/O CHOLANGITIS OR CHOLECYST W/O OBST (2) Elevated bilirubin Assessment/Plan: POD #1 lap choley -pain management -monitor labs -IVF Code(s): R17 - UNSPECIFIED JAUNDICE (3) HTN (hypertension) Assessment/Plan: -improved -on metoprolol -add lisinopril 5 mg po daily Code(s): I10 - ESSENTIAL (PRIMARY) HYPERTENSION Qualifiers: Hypertension type: essential hypertension Qualified Code(s): I10 - Essential (primary) hypertension (4) Diabetes Assessment/Plan: A1C- Prediabetes -on metformin at home Code(s): E11.9 - TYPE 2 DIABETES MELLITUS WITHOUT COMPLICATIONS Qualifiers: Diabetes mellitus type: type 2 Assessment/Plan see problem list
[2017-05-23] MEDS: METOPROLOL TARTRATE 25 MG TABLET (FP) PO SCH ×2 (10:40→21:17)
[2017-05-23] MEDS: LISINOPRIL 5 MG TABLET (FP) PO SCH (10:40)
[2017-05-23] MEDS: PANTOPRAZOLE SODIUM 40 MG VIAL IVPUSH SCH ×2 (10:40→21:17)
[2017-05-23] MEDS: CEFTRIAXONE 1 GM in DEXTROSE 5%-WATER - 50 ML IVPB SCH (10:41)
[2017-05-23] MEDS ORDERED: PT OWN MED DRAWER 7, Y5N ONE ×2 (10:57→21:07)
[2017-05-23] MEDS: morphine SULFATE 4 MG/ML VIAL IVPUSH PRN (23:20)
[2017-05-24] MEDS: METOCLOPRAMIDE HCL INJECTION 10 MG/2 ML VIAL IVPUSH SCH ×2 (01:38→09:52)
[2017-05-24] MEDS ORDERED: PT OWN MED DRAWER 7, Y5N ONE (09:48)
[2017-05-24] MEDS ORDERED: DEXTROSE 5%-WATER - 50 ML IVPB ONE (09:48)
[2017-05-24] MEDS ORDERED: cefTRIAXone SODIUM 1 GM VIAL ONE (09:48)
[2017-05-24] MEDS: LISINOPRIL 5 MG TABLET (FP) PO SCH (09:51)
[2017-05-24] MEDS: METOPROLOL TARTRATE 25 MG TABLET (FP) PO SCH (09:51)
[2017-05-24] MEDS: CEFTRIAXONE 1 GM in DEXTROSE 5%-WATER - 50 ML IVPB SCH (09:51)
[2017-05-24] MEDS: PANTOPRAZOLE SODIUM 40 MG VIAL IVPUSH SCH (09:52)
--- NOTE | 2017-05-24 10:30 | DS ---
Physical Examination Vital Signs: Vital Signs Temperature 98.4 F 05/24/17 06:00 Pulse Rate 60 05/24/17 06:00 Respiratory Rate 20 05/24/17 06:00 Blood Pressure 142/80 05/24/17 06:00 O2 Sat by Pulse Oximetry (%) 97 05/23/17 21:00 Constitutional: Yes: Well Nourished, No Distress, Calm Cardiovascular: Yes: Regular Rate and Rhythm Respiratory: Yes: Regular Gastrointestinal: Yes: Normal Bowel Sounds, Soft, Tenderness (incisional) Musculoskeletal: Yes: WNL Extremities: Yes: WNL Edema: No Peripheral Pulses WNL: Yes Neurological: Yes: Alert, Oriented Psychiatric: Yes: Alert, Oriented Labs: CBC, BMP 05/23/17 06:40 05/23/17 06:40 Discharge Summary Reason For Visit: COMMON BILE DUCT CALCULUS, CHOLELITHIASIS Current Active Problems Choledocholithiasis (Acute) Cholelithiasis (Acute) Diabetes (Acute) Elevated bilirubin (Acute) HTN (hypertension) (Acute) Other Procedures: Laparascopic Choleycystectomy Hospital Course: 1 yo PMH HTN, DM type 2 who presented with 4 days of constant RUQ pain. Attests to weeks of postprandial colicky RUQ pain, but attributed it to her GERD. 4 days ago, she experienced constant, sharp RUQ pain assoc w/ NBNB vomiting, jaundice, dark urine, and light colored stools. She went to her PCP who performed a RUQ ultrasound which showed a stone in her CBD. She was sent here for further management. She denies fevers, chills, CP, SOB, diarrhea, constipation. Operative Date: 05/22/17 Pre-Operative Diagnosis: Common bile duct obstructing stone Operation: laparoscopic cholecystectomy Findings: impacted stone in the cystic duct that was milked back into the gall bladder. critical view identified. distended gallbladder Post-Operative Diagnosis: Same as Pre-op Surgeon: Nolan Sommers Senior Program Analyst: Lance Royal Condition: Stable - Instructions Diet, Activity, Other Instructions: Postoperative instructions: You had a laparoscopic cholecystectomy on 05/22/[address] Nolan Sommers of [facility]. Activity: Resume your usual activities gradually, but no heavy exertion or lifting more than 10-15 pounds for 1 month. Remove dressings 48 hours after surgery; sticky tapes underneath will fall off by themselves. You may shower daily starting then, just pat the incision areas dry. No bath until skin incisions are healed. Eat lightly at first, but advance to your usual diet as tolerated. Pain: For pain, you may use and alternate Tylenol (acetaminophen) and/or ibuprofen every 6 hours each as needed; this means that you can take one OR the other at 3-hour intervals. If you are prescribed a Tylenol/narcotic combination for severe pain, use it instead of plain Tylenol as needed and switch back when your pain starts decreasing. Do not take more than 4000mg of acetaminophen in a day. Take medications as prescribed or indicated on the labeling. Follow-up: Call Dr. Sommers' office at [phone] to make your postop appointment (Monday ~2 weeks after surgery). Clinic is held in the [facility] on the first floor of [facility]. Call the office if you have: * increasing pain not responsive to pain medication * fever of 101F or higher * vomiting * unusual or increasing bleeding or drainage from wounds * increasing redness or swelling at wound sites * inability to urinate Also, see your primary medical doctor within 1-2 weeks. Referrals: Nolan Sommers MD [Staff Physician] - 2 Weeks Su Meléndez [Primary Care Provider] - Disposition: HOME - Home Medications Comprehensive Discharge Medication List: Ambulatory Orders Bupropion HCl [Bupropion Xl] 300 mg PO BID 10/30/13 Ergocalciferol (Vitamin D2) [Vitamin D] 50,000 unit PO WEEKLY 10/30/13 Hydrochlorothiazide [Hctz -] 25 mg PO DAILY 10/30/13 Hyoscyamine 0.125 mg PO TID 10/30/13 Loratadine 10 mg PO DAILY 10/30/13 Magnesium Oxide [Mag-Ox -] 400 mg PO DAILY 10/30/13 Metformin HCl [Metformin HCl ER] 500 mg PO BID 10/30/13 Metoprolol Tartrate [Lopressor -] 25 mg PO BID 10/30/13 [place]-3 Acid Ethyl Esters [Lovaza -] 1,000 mg PO BID 10/30/13 Omeprazole [Prilosec] 20 mg PO BID 10/30/13
[2017-05-24 10:33] VITALS: BP 121/63; PULSE 62; TEMP 97.7
--- NOTE | 2017-05-24 15:06 | PATH ---
Surgical Pathology Report Patient Name: SARAI DE LA PAZ Med. Rec. #: [id number] /Age/Gender: 1965 (Age: 51) / F Account: [id number] Location: [facility] MED/SURG Taken: 05/22/2017 Received: 05/23/2017 Reported: 05/24/2017 Physicians: Gerry Peña M.D. Specimen(s) Received GALLBLADDER AND STONES Clinical History Abdominal pain, calculus of common bile duct, cholelithiasis Final Diagnosis GALLBLADDER, LAPAROSCOPIC CHOLECYSTECTOMY: CHRONIC CHOLECYSTITIS WITH CHOLELITHIASIS AND CHOLESTEROLOSIS. ONE BENIGN LYMPH NODE (0/). Electronically Signed Michaela Leslie M.D. Gross Description Received in formalin, labeled "gallbladder," is a 10.5 x 3.3 x 3.2 cm. gallbladder with a 0.2 cm. in length portion of cystic duct attached. There is a 1.2 cm greatest dimension lymph node present. The outer surface is leonard and varies from smooth to shaggy. The lumen contains thick green, mucinous bile as well as multiple yellow, spherical choleliths averaging 0.5 cm in diameter. The mucosa is green and focally eroded. The wall of the gallbladder averages 0.1 cm. in thickness. Health And Physical Education Teacher sections are submitted in one cassette. /05/23/2017 saudi05/23/2017
== END 2017-05-24 13:38 | disposition home or self-care (01) | DRG 263 ==
LOC: JER 15:45 → JERBED 23:03 → J8W 05-18 13:10
PROVIDERS: ADMIT Internal Medicine; ATTEND Family Medicine
PROC: 0F798ZZ Dilation of Common Bile Duct, Via Natural or Artificial Opening Endoscopic (ICD-10-PCS; 2017-05-20)
PROC: BF10YZZ Fluoroscopy of Bile Ducts using Other Contrast (ICD-10-PCS; 2017-05-20)
PROC: 0FT44ZZ Resection of Gallbladder, Percutaneous Endoscopic Approach (ICD-10-PCS; principal; 2017-05-22 12:30)
DX: K80.51 Calculus of bile duct without cholangitis or cholecystitis with obstruction (principal); E11.9 Type 2 diabetes mellitus without complications; I10 Essential (primary) hypertension; F41.9 Anxiety disorder, unspecified; K21.9 Gastro-esophageal reflux disease without esophagitis
CPT/HCPCS: 36415; 71046-TC-FY; 74160-TC; 76000-TC-FY; 76705-TC; 80053; 81003; 81015; 82150; 82248; 82962; 82977; 83036; 83690; 83735; 84100; 84703; 85025; 85027; 85610; 85730; 86850; 86900; 86901; 87086; 88304-TC; 93005; 93010; 93306-TC; 94010; 94760; 97116-GP; 97161-GP; 99283-25; J7030

== ENCOUNTER 2023-08-11 14:43 | Emergency (ER) | payer OTHER ==
[2023-08-11 15:08] VITALS: BP 138/80; PULSE 68; RESP 18; TEMP 96.8; BMI 20.7
== END 2023-08-11 18:07 | disposition home or self-care (01) ==
LOC: JERFT 14:43
DX: S81.802A Unspecified open wound, left lower leg, initial encounter (principal); S80.12XA Contusion of left lower leg, initial encounter; V03.10XA Pedestrian on foot injured in collision with car, pick-up truck or van in traffic accident, initial encounter; Y92.410 Unspecified street and highway as the place of occurrence of the external cause
CPT/HCPCS: 73590-TC-LT-FY; 93971-TC; 99284-25